=== PATIENT | male | born 1945 | race Caucasian/White ===

== ENCOUNTER → 2019-09-26 09:02 | Outpatient (BNVA) | payer MEDICARE, OTHER, SELFPAY | PROVIDERS: Family Provider Internal Medicine; PCP Internal Medicine; Visit Provider Urology | DX: N41.1 Chronic prostatitis (principal); N99.112 Postprocedural membranous urethral stricture, male; R97.20 Elevated prostate specific antigen [PSA] | CPT/HCPCS: 81001 ==

== ENCOUNTER → 2019-12-03 09:52 | Outpatient (BNVA) | payer MEDICARE, OTHER, SELFPAY | PROVIDERS: Family Provider Internal Medicine; PCP Internal Medicine; Referring Provider Dermatology; Visit Provider Dermatology | DX: N41.1 Chronic prostatitis (principal); Z85.828 Personal history of other malignant neoplasm of skin; L57.0 Actinic keratosis; L82.1 Other seborrheic keratosis; B35.1 Tinea unguium | CPT/HCPCS: 17000; 17003; 99203; 99204 ==

== ENCOUNTER 2020-03-15 00:13 | Emergency (ER) | payer MEDICARE, OTHER, SELFPAY ==
[2020-03-15] VITALS (8 sets, daily range): BP systolic 113–133; BP diastolic 62–78; PULSE 68–104; RESP 16–20; TEMP 37.1–37.9; O2SAT 91–98; BMI 23.5
--- NOTE | 2020-03-15 01:22 | PC.NURSE ---
pt stated i think I'm feeling better, less coughing
--- NOTE | 2020-03-15 02:37 | PC.NURSE ---
Hourly rounding and video surveillance. Provided pt with drink and access to bathroom
--- NOTE | 2020-03-15 03:22 | XRR_ITS ---
PROCEDURE INFORMATION: Exam: XR Chest, 1 View Exam date and time: 03/15/2020 3:31 AM Age: 75 years old Clinical indication: Patient HX: Cough. Recent covid exposure. Negative covid test on 03/10/2020. ; Additional info: Cough fever TECHNIQUE: Imaging protocol: XR of the chest Views: 1 view. COMPARISON: CR Chest 1 [place] [id number] 05/07/2016 6:42 PM FINDINGS: Lungs: No CHF/pulmonary edema. Poor inspiration somewhat limits evaluation, especially of the lung bases. Visible lungs appear essentially clear. Pleural space: No visible pneumothorax. No definite pleural fluid. Heart/Mediastinum: Heart size is within normal limits. Bones/joints: No significant acute finding. XR/XR chest 1V portable [id number] IMPRESSION: 1. No definite pneumonia or CHF. 2. Other findings discussed above.
--- NOTE | 2020-03-15 03:33 | ED_ITS ---
HPI - COVID General: Chief Complaint: COVID symptoms Stated Complaint: all covid symptoms, tested tuesday came back -, Time Seen by Provider: 03/15/20 03:21 Triage information: Has fever, cough or shortness of breath . Exposure to COVID + person last 14 days History of Present Illness: HPI Narrative: 75-year-old male who lost his taste on Tuesday. He was tested for COVID-19 that day, and tested negative. Since that time, he has had a cough. No shortness of breath. He came with a fever today. No other symptoms. His tested positive for the virus on Tuesday, and was tested at the same time he was. MD complaint: has COVID symptoms Prior covid testing: yes, results known COVID 19 common symptoms: positive fever(s), chills, cough and body aches; negative productive cough, dyspnea, nausea, vomiting or diarrhea COVID 19 other sytmptoms: negative chest pressure or chest pain Onset (ago): day(s) Severity: mild Pertinent comorbid conditions: hypertension COVID Results: SARS-CoV-2 Antigen (Rapid) Negative (Negative) 03/15/20 02:30 03/15/20 Nasal/Oral Coronavirus 2019 PCR Pending 03/15/20 02:30 03/15/20 Review of Systems Const: Reports: fever(s), chills and body aches Card: Denies: chest pain Resp: Denies: dyspnea or productive cough GI: Denies: nausea, vomiting, diarrhea or hematochezia PFS ED PFSH: Medical History (Updated 03/15/20 @ 04:25 by Shawn Cantor DO) Chronic prostatitis Elevated PSA History of nonmelanoma skin cancer GERARDO (obstructive sleep apnea) SVT (supraventricular tachycardia) Urethral stricture Surgical History H/O hand surgery Left thumb tendon repair S/P cystourethroscopy with dilation of urethral stricture 2013 S/P hernia repair Left inguinal S/P TURP 2012 Family History Father Heart disease Mother Heart disease Dementia Social History Smoking and tobacco status: never smoked Alcohol intake: never Adopted: No Caregiver/support person: No Lives independently: No Household members: spouse Marital status: Current occupational status: retired Physical Exam Const: GENERAL APPEARANCE: well developed ORIENTATION/CONSCIOUSNESS: Yes oriented to person, Yes oriented to place and Yes oriented to time HENMT: COMMON NORMALS: normocephalic, external ears normal and Normal external nose present HEAD & SCALP: normocephalic FACE & SINUS: normal facial exam NOSE: Normal external nose present and No nasal discharge present EXTERNAL EAR: Yes external ears normal Eye: COMMON NORMALS: Equal, round and reactive pupils present, EOMs intact bilaterally and conjunctivae normal EYELID: eyelids normal CONJUNCTIVA: Yes conjunctivae normal PUPIL: Yes Equal, round and reactive pupils present Neck/C-Spine: GENERAL: No tracheal deviation Chest: COMMONS NORMALS: normal inspection of the chest CHEST: No tenderness Resp: COMMON NORMALS: clear to auscultation bilaterally EFFORT & INSPECTION: No tachypneic, No respiratory distress, No retractions, No uses accessory muscles and No tracheal deviation AUSCULTATION: clear to auscultation bilaterally, no rhonchi, no wheezes and lung sounds not diminished Cardio: COMMON NORMALS: regular rate and regular rhythm RATE: regular rate RHYTHM: regular rhythm HEART SOUNDS: no murmurs PERIPHERAL PULSES: radial pulses present GI: INSPECTION: No abdominal distension AUSCULTATION: No Hyperactive bowel sounds present and No Hypoactive bowel sounds present PALPATION: No Guarding due to palpation present (GI) and No Rigid due to palpation PERCUSSION: no dullness to percussion and no tympanic to percussion Neuro: SENSORIUM/ORIENTATION: Yes oriented to person, Yes oriented to place and Yes oriented to time Psych: COMMON NORMALS: mental status grossly normal Skin: COMMON NORMALS: no rashes or lesions noted GENERAL SKIN EXAM: no rashes or lesions noted Course Vital Signs: Vital signs: Vital Signs Temperature 99.7 F H 03/15/20 03:00 Pulse Rate 69 03/15/20 04:00 Respiratory Rate 18 03/15/20 04:00 Blood Pressure 116/69 03/15/20 04:00 Pulse Oximetry 94 03/15/20 04:00 MDM - COVID MDM Narrative: Medical decision making narrative: Patient presents with a mild fever. He otherwise appears well. He is not hypoxic. His chest is nontender. His belly is nontender. He has normal saturations. His chest x-ray is negative. His rapid Covid is negative. He is tested for PCR as well, which will be pending of course. He was tested rapid, as he would be a candidate for monoclonal antibody infusion. He will remain such, should his PCR turn positive. Lab Data: Labs: Lab Results 03/15/20 Range/Units 02:30 SARS-CoV-2 Ag (Rap id) Negative (Negative) COVID Results: SARS-CoV-2 Antigen (Rapid) Negative (Negative) 03/15/20 02:30 03/15/20 Nasal/Oral Coronavirus 2019 PCR Pending 03/15/20 02:30 03/15/20 Discharge Plan Discharge Patient Disposition: Home Clinical Impression: Upper respiratory infection Qualifiers: URI type: unspecified URI Qualified Code(s): J06.9 - Acute upper respiratory infection, unspecified Condition: Stable Prescriptions: New doxycycline hyclate 100 mg capsule 100 mg PO BID 7 Days Qty: 14 RF: 0 No Action magnesium oxide 400 mg magnesium capsule 400 mg PO DAILY RF: 0 ibuprofen 200 mg capsule 200 mg PO Q6H PRNRF: 0 levothyroxine 25 mcg capsule 25 mcg PO DAILY RF: 0 meclizine 25 mg tablet 25 mg PO DAILY PRNRF: 0 vitamin B complex [B Complex-Vitamin B12] Tablet 1 tab PO DAILY RF: 0 valacyclovir 1 gram tablet 1,000 mg PO BID PRNRF: 0 sulfamethoxazole-trimethoprim 800-160 mg tablet 1 tab PO BID PRNRF: 0 All Day Allergy (cetirizine) 10 mg capsule PO RF: 0 metoprolol succinate 25 mg tablet extended release 24 hr 25 mg PO DAILY Qty: 90 RF: 3 finasteride 5 mg tablet 5 mg PO DAILY Qty: 30 RF: 12 Discharge Orders: Discharge ED (Routine); Ordered 03/15/20 Ordered By: Shawn Cantor Referrals: Bradley Marquis DO [Primary Care Provider] - 4-7 days Activity Restrictions/Additional Instructions: Return for continued or worsening fever, shortness of breath, mental status changes, other concerning symptoms. Continue to hydrate. Watch your fever closely. He should continue to quarantine at home. You should be notified of your results for the PCR Covid test. Coding Level of Care Code ED Stroke Program Coordinator for Chg Fwd Exam Comprehensive
--- NOTE | 2020-03-15 04:02 | PC.NURSE ---
pt waiting on Covid test result
[2020-03-15 04:15] LABS: SARS Covid-2 Antigen Negative (Negative)
[2020-03-15] MEDS: dexamethasone 4 mg Tablet 10 MG PO (05:03)
[2020-03-16 12:32] LABS: Quest SARS-CoV-2 RNA DETECTED (NOT DETECTED)
--- NOTE | 2020-03-16 15:51 | PC.NURSE ---
Patient notified of COVID results at this time.
== END 2020-03-15 05:10 | disposition home or self-care (01) ==
PROVIDERS: Emergency Provider Emergency Medicine; PCP Internal Medicine
DX: U07.1 COVID-19 (principal)
CPT/HCPCS: 12345; 71045; 87426; 87635; 99282; 99283; J8540

== ENCOUNTER → 2020-09-25 09:21 | Outpatient (BNVA) | payer MEDICARE, OTHER, SELFPAY | PROVIDERS: PCP Internal Medicine; Visit Provider Urology | DX: R97.20 Elevated prostate specific antigen [PSA] (principal); N41.1 Chronic prostatitis; N99.112 Postprocedural membranous urethral stricture, male | CPT/HCPCS: 81003; 84153 ==

== ENCOUNTER 2020-10-14 07:35 | Outpatient (CLI) | payer MEDICARE, OTHER, SELFPAY ==
--- NOTE | 2020-10-14 08:00 | USCV_ITS ---
Vimal Walden Age: 75 Gender: M : 1945 Exam Date: 10/14/2020 08:05 Ordering Phys: Todd Duarte MD ([email or web address]) Technologist: SITA [place] [facility] [place]B BP: 120 / 70 HR: 60 Rhythm: Sinus Technical Quality: MEASUREMENTS (Male / Female) Normal Values 2D ECHO LV Diastolic Diameter PLAX 4.4 cm 4.2 - 5.9 / 3.9 - 5.3 cm LV Systolic Diameter PLAX 3.0 cm IVS Diastolic Thickness 1.1 cm 0.6 - 1.0 / 0.6 - 0.9 cm IVS Systolic Thickness 1.4 cm LVPW Diastolic Thickness 1.1 cm 0.6 - 1.0 / 0.6 - 0.9 cm LVPW Systolic Thickness 1.3 cm RV Chamber Size 3.5 cm LVOT Diameter 2.0 cm LV Ejection Fraction 2D Teich 60.2 % LV Ejection Fraction MOD 2C 65.4 % LV Ejection Fraction 2C AL 68.0 % LA Diameter 2.6 cm LA Width 3.7 cm LA Height 4.3 cm RA Width 3.4 cm RA Height 4.5 cm Aorta at Sinotubular Diameter 2.2 cm M-MODE Aortic Annulus Diameter 3.0 cm LA Ao Ratio MM 0.9 MV E Point Septal Separation 0.8 cm DOPPLER AV Peak Velocity 87.0 cm/s LVOT Peak Velocity 74.0 cm/s AV Area Cont Eq vti 2.4 cm squared AV Area Cont Eq pk 2.7 cm squared MV Area PHT 4.1 cm squared Mitral E to A Ratio 1.5 MV E' Velocity 39.5 cm/s Mitral E to MV E' Ratio 7.3 Mitral E to LV E' Lateral Ratio 6.9 Mitral E to LV E' Septal Ratio 7.7 TR Peak Velocity 243.0 cm/s TR Peak Gradient 23.6 mmHg TV Peak E Velocity 53.0 cm/s Right Atrial Pressure 3.0 mmHg Pulmonary Artery Systolic Pressu 26.6 mmHg PV Peak Velocity 95.0 cm/s RV Acceleration Time 0.1 s RV Ejection Time 0.3 s RV AcT/ET 0.3 FINDINGS Left Ventricle Normal left ventricular cavity size. Normal left ventricular systolic function. No regional wall motion abnormalities. Left ventricular ejection fraction is estimated at 65 %. Grade II/IV diastolic dysfunction, moderately elevated filling pressures. Right Ventricle The right ventricle is normal in size and function. RVSP could not be calculated due to incomplete tricuspid regurgitation velocity profile. Right Atrium The right atrium is normal in size. Left Atrium The left atrium is normal in size. Mitral Valve Moderately thickened mitral valve. Mild mitral annular calcification. No mitral valve stenosis. Trace mitral valve regurgitation. Aortic Valve Severe aortic valve calcification. No aortic valve stenosis. Trace aortic valve regurgitation. Tricuspid Valve Structurally normal tricuspid valve without significant stenosis or regurgitation. Pulmonic Valve Structurally normal pulmonic valve without significant stenosis. There is no pulmonic regurgitation. Pericardium Normal pericardium without effusion. Aorta Normal ascending aorta dimension. CONCLUSIONS 1-Normal left ventricular cavity size. Normal left ventricular systolic function. No regional wall motion abnormalities. Left ventricular ejection fraction is estimated at 65 %. Grade II/IV diastolic dysfunction, moderately elevated filling pressures. 2-No significant valve abnormalities. 3-There is no pericardial effusion. 4-No significant change since the prior echocardiogram study of 06/18/2016.. Todd Duarte MD (Electronically Signed) Final Date: 14 October 2020 22:10 S
== END 2020-10-14 07:36 | disposition home or self-care (01) ==
PROVIDERS: PCP Internal Medicine; Visit Provider Internal Medicine Cardiovascular Disease
DX: R06.02 Shortness of breath (principal); R07.9 Chest pain, unspecified
CPT/HCPCS: 93306

== ENCOUNTER → 2021-03-03 15:46 | Outpatient (BNVA) | payer MEDICARE, OTHER, SELFPAY | PROVIDERS: PCP Internal Medicine; Visit Provider Urology | DX: N41.1 Chronic prostatitis (principal); N99.112 Postprocedural membranous urethral stricture, male; R31.0 Gross hematuria | CPT/HCPCS: 81003 ==

== ENCOUNTER → 2021-05-10 10:28 | Outpatient (BNVA) | payer MEDICARE, OTHER, SELFPAY | PROVIDERS: PCP Internal Medicine; Visit Provider Nurse Practitioner | DX: R50.9 Fever, unspecified (principal) | CPT/HCPCS: 87400 ==

== ENCOUNTER → 2021-09-11 10:10 | Outpatient (BNVA) | payer MEDICARE, OTHER, SELFPAY | PROVIDERS: PCP Internal Medicine; Visit Provider Internal Medicine Cardiovascular Disease | DX: I47.1 Supraventricular tachycardia (principal) | CPT/HCPCS: 99213 ==

== ENCOUNTER → 2021-09-28 12:59 | Outpatient (BNVA) | payer MEDICARE, OTHER, SELFPAY | PROVIDERS: PCP Internal Medicine; Visit Provider Urology | DX: R31.0 Gross hematuria (principal); N41.1 Chronic prostatitis; N99.112 Postprocedural membranous urethral stricture, male | CPT/HCPCS: 51798; 81003; 99213 ==

== ENCOUNTER 2021-11-08 12:59 | Emergency (ER) | payer MEDICARE, OTHER, SELFPAY ==
[2021-11-08 13:14] VITALS: BP 162/82; PULSE 63; RESP 16; TEMP 36.7; O2SAT 97; BMI 23.3
--- NOTE | 2021-11-08 13:40 | CTR_ITS ---
PROCEDURE INFORMATION: Exam: CT Head Without Contrast Exam date and time: 11/08/2021 3:33 PM Age: 76 years old Clinical indication: Altered mental status/memory loss and visual disturbance; Confusion or disorientation; Additional info: Symptoms of acute stroke TECHNIQUE: Imaging protocol: Computed tomography of the head without contrast. Radiation optimization: All CT scans at this facility use at least one of these dose optimization techniques: automated exposure control; mA and/or kV adjustment per patient size (includes targeted exams where dose is matched to clinical indication); or iterative reconstruction. COMPARISON: No relevant prior studies available. RADIATION DOSE METRICS: Total DLP (mGy-cm): 1043.08 FINDINGS: Brain: There are moderate periventricular and subcortical lucencies consistent with chronic microvascular ischemic changes. The tai-white differentiation is maintained. No hemorrhage. No edema. Cerebral ventricles: No ventriculomegaly. Paranasal sinuses: Visualized sinuses are unremarkable. No fluid levels. Mastoid air cells: Visualized mastoid air cells are well aerated. Bones/joints: Unremarkable. No acute fracture. Soft tissues: Unremarkable. CT/CT head wo con* [id number] IMPRESSION: No acute intracranial abnormality. Chronic microvascular ischemic changes.
--- NOTE | 2021-11-08 13:45 | CTR_ITS ---
PROCEDURE INFORMATION: Exam: CTA Head With Contrast, Arteriography Exam date and time: 11/08/2021 3:37 PM Age: 76 years old Clinical indication: Visual disturbance; Transient visual loss; Additional info: Transient monocular vision loss TECHNIQUE: Imaging protocol: Computed tomographic angiography of the head with contrast. Exam focused on the arteries. 3D rendering (Not supervised by radiologist): MIP and/or 3D reconstructed images were created by the technologist. Radiation optimization: All CT scans at this facility use at least one of these dose optimization techniques: automated exposure control; mA and/or kV adjustment per patient size (includes targeted exams where dose is matched to clinical indication); or iterative reconstruction. Contrast material: OMNIPAQUE 350; Contrast volume: 95 ml; Contrast route: INTRAVENOUS (IV); COMPARISON: CT head wo con* [id number] 11/08/2021 3:33 PM RADIATION DOSE METRICS: Total DLP (mGy-cm): 455.42 FINDINGS: ANTERIOR CIRCULATION: Right internal carotid artery: Unremarkable. Intracranial segment is patent with no significant stenosis. No aneurysm. Right middle cerebral artery: Unremarkable. No occlusion or significant stenosis. No aneurysm. Right anterior cerebral artery: Unremarkable. No occlusion or significant stenosis. No aneurysm. Left internal carotid artery: Unremarkable. Intracranial segment is patent with no significant stenosis. No aneurysm. Left middle cerebral artery: Unremarkable. No occlusion or significant stenosis. No aneurysm. Left anterior cerebral artery: Unremarkable. No occlusion or significant stenosis. No aneurysm. POSTERIOR CIRCULATION: Right vertebral artery: Unremarkable. No occlusion or significant stenosis. No aneurysm. Left vertebral artery: Unremarkable. No occlusion or significant stenosis. No aneurysm. Basilar artery: Unremarkable. No occlusion or significant stenosis. No aneurysm. Right posterior cerebral artery: Unremarkable. No occlusion or significant stenosis. No aneurysm. Left posterior cerebral artery: Unremarkable. No occlusion or significant stenosis. No aneurysm. Brain: No definite mass, mass effect, or midline shift. Cerebral ventricles: No ventriculomegaly. Bones/joints: Unremarkable. No acute fracture. Soft tissues: Unremarkable. PROCEDURE INFORMATION: Exam: CTA Neck With Contrast Exam date and time: 11/08/2021 3:37 PM Age: 76 years old Clinical indication: Visual disturbance; Transient visual loss; Additional info: Transient monocular vision loss TECHNIQUE: Imaging protocol: Computed tomographic angiography of the neck with contrast. 3D rendering (Not supervised by radiologist): MIP and/or 3D reconstructed images were created by the technologist. Radiation optimization: All CT scans at this facility use at least one of these dose optimization techniques: automated exposure control; mA and/or kV adjustment per patient size (includes targeted exams where dose is matched to clinical indication); or iterative reconstruction. Contrast material: OMNIPAQUE 350; Contrast volume: 95 ml; Contrast route: INTRAVENOUS (IV); COMPARISON: CT head wo con* [id number] 11/08/2021 3:33 PM RADIATION DOSE METRICS: Total DLP (mGy-cm): 455.42 FINDINGS: Right common carotid artery: No stenosis. No dissection or occlusion. Right internal carotid artery: No stenosis of the extracranial segment. No dissection or occlusion. Right external carotid artery: No occlusion or stenosis of the origin. Left common carotid artery: No stenosis. No dissection or occlusion. Left internal carotid artery: No stenosis of the extracranial segment. No dissection or occlusion. Left external carotid artery: No occlusion or stenosis of the origin. Right vertebral artery: No stenosis. No dissection or occlusion. Left vertebral artery: No stenosis. No dissection or occlusion. Soft tissues: Normal. No significant soft tissue swelling. Bones/joints: No acute fracture. CT/CT angio headneck* [id number] IMPRESSION: No large vessel stenosis or occlusion. IMPRESSION: No stenosis or occlusion. REFERENCES: NASCET CRITERIA. The degree of stenosis in the cervical segment of the internal carotid artery is based on NASCET criteria. Normal is no stenosis. Mild is less than 50% stenosis. Moderate is 50-69% stenosis. Severe is 70% to 99% stenosis. Total occlusion is no detectable patent lumen.
--- NOTE | 2021-11-08 13:55 | ECG_ITS ---
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 Measurements Intervals Louise Rate: 55 P: 37 CA: 149 QRS: 15 QRSD: 84 T: -5 QT: 406 QTc: 390 Interpretive Statements SINUS BRADYCARDIA Compared to ECG 05/07/2016 22:06:43 Sinus rhythm no longer present Electronically Signed On 11-08-2021 18:13:20 CDT by Alexandro Olsen M.D. [id number]
--- NOTE | 2021-11-08 14:06 | W.ED.EYEPROB ---
HPI - Eye Problem General: Chief complaint: Eye Problems Stated complaint: Left eye when blurry and left side weakness Time Seen by Provider: 11/08/21 13:24 History of Present Illness: This patient is a 76 year old male presenting with acute vision changes in his left eye that occurred at 10 am this morning. He was sitting in [employer] and noted that the left eye went dark fairly suddenly. He was able to see a little bit but like through a cloth. Gradually the symptoms resolved and his vision is nearly normal now - but the eye continues to feel funny. He can't be more descriptive than that. No pain. No numbness of the skin around the eye. No other neuro symptoms. No headache. No nausea, lightheadedness, speech or swallowing difficulties. The triage note mentions left sided weakness and the patient specifically denied that to me. He has regular eye exams and has been told that he has the start of cataracts and wears glasses for vision correction. Associated symptoms: Reports neck pain (chronic and unchanged today); Denies fever(s), headache(s), nausea or vomiting Review of Systems Const: Denies: fever(s) or chills Eyes: Reports: change in vision and seeing flashes (has had in the past, but not today) ENMT: Denies: odynophagia Card: Denies: chest pain or swelling of feet/ankles Resp: Denies: dyspnea, productive cough or non-productive cough GI: Denies: abdominal pain, nausea or vomiting : Denies: flank pain Musc: Reports: neck pain (chronic and unchanged today); Denies: back pain Skin/Breast: Denies: rash Neuro: Denies: headache(s), numbness in extremities or weakness in extremities Son/Lymph: Denies: easy bruising or easy bleeding PFS ED PFSH: Medical History Chronic prostatitis Elevated PSA History of nonmelanoma skin cancer GERARDO (obstructive sleep apnea) SVT (supraventricular tachycardia) Urethral stricture Surgical History H/O hand surgery Left thumb tendon repair S/P cystourethroscopy with dilation of urethral stricture 2013 S/P hernia repair Left inguinal S/P TURP 2012 Family History Father , at age 74 Heart disease Mother , at age 93 Heart disease Dementia Social History Smoking and tobacco status: never smoked Alcohol intake: never Adopted: No Caregiver/support person: No Lives independently: No Household members: spouse Marital status: Current occupational status: retired History of recent travel: No Physical Exam Const: COMMON NORMALS: no acute distress, patient oriented x3, no limitations and alert GENERAL APPEARANCE: cooperative and comfortable HENMT: HEAD & SCALP: normal to inspection FACE & SINUS: normal facial exam Eye: COMMON NORMALS: Equal, round and reactive pupils present, EOMs intact bilaterally, conjunctivae normal, no papilledema, normal visual levine by confrontation and fundi normal bilaterally GENERAL EYE: appearance normal, both eyes and all related structures CONJUNCTIVA: Yes conjunctivae normal PUPIL: Yes Equal, round and reactive pupils present DIRECT OPHTHALMOSCOPY: Yes no papilledema and Yes fundi normal bilaterally OTHER: pressure 19 with tonometry Neck/C-Spine: COMMON NORMALS: supple, no meningeal signs and no JVD Chest: COMMONS NORMALS: normal inspection of the chest Resp: COMMON NORMALS: normal respiratory effort, No use of accessory muscles and clear to auscultation bilaterally AUSCULTATION: clear to auscultation bilaterally Cardio: COMMON NORMALS: no JVD, regular rate, regular rhythm and No murmurs present (Cardio) RATE: regular rate RHYTHM: regular rhythm GI: COMMON NORMALS: Normal to inspection, nondistended, normoactive bowel sounds present, Soft to palpation and non-tender INSPECTION: Yes normal to inspection AUSCULTATION: Yes normoactive bowel sounds PALPATION: Yes Soft to palpation Back/Pelvis: COMMON NORMALS: thoracic and lumbar spine normal to inspection Extremity: COMMON NORMALS: normal to inspection Neuro: COMMON NORMALS: patient oriented x3, moves all extremities, no focal motor deficits and no sensory deficits noted SENSORIUM/ORIENTATION: Yes alert MENINGEAL SIGNS: Yes no meningeal signs Psych: COMMON NORMALS: mental status grossly normal, cooperative and normal affect Skin: COMMON NORMALS: no rashes or lesions noted and turgor normal GENERAL SKIN EXAM: no rashes or lesions noted and turgor normal Course ED course: Patient remained asymptomatic while in the ED. Work up with normal CRP/ESR, normal CT and CTA head and neck. Normal eye exam within the limitations of an ED. He will go home with follow up with his eye doctor tomorrow. He will also follow up with his PCP. He understands that we have ruled out carotid blockage, however he may still need further testing as to the cause of his transient vision loss. He also understands return precautions. Vital Signs: Vital signs: Vital Signs Temperature 98.1 F 11/08/21 13:14 Pulse Rate 58 L 11/08/21 16:00 Respiratory Rate 16 11/08/21 16:00 Blood Pressure 128/77 11/08/21 16:00 Pulse Oximetry 96 11/08/21 16:00 Oxygen Delivery Me thod 11/08/21 14:32 MDM - Eye Problem Medical Decision Making Transient monocular vision loss - TIA, stroke, dissection, retinal pathology, retinal artery spasm, complex migraine, vitreous hemorrhage. Of note he is on viagra as needed for erectile dysfunction Lab Data : 11/08/21 14:03 11/08/21 14:[address] 11/08/21 13:40 IMPRESSION: No acute intracranial abnormality. Chronic microvascular ischemic changes. Head/Neck CTA 11/08/21 13:45 IMPRESSION: No large vessel stenosis or occlusion. IMPRESSION: No stenosis or occlusion. REFERENCES: NASCET CRITERIA. The degree of stenosis in the cervical segment of the internal carotid artery is based on NASCET criteria. Normal is no stenosis. Mild is less than 50% stenosis. Moderate is 50-69% stenosis. Severe is 70% to 99% stenosis. Total occlusion is no detectable patent lumen. Laboratory Results WBC 6.5 10^3/uL (4.0-10.0) 11/08/21 14:03 RBC 4.74 10^6/uL (4.1-5.3) 11/08/21 14:03 Hgb 14.9 g/dL (11.7-16.6) 11/08/21 14:03 Hct 45.0 % (42.0-52.0) 11/08/21 14:03 MCV 94.9 fl (80-94) H 11/08/21 14:03 MCH 31.4 pg (28.0-34.0) 11/08/21 14:03 MCHC 33.1 g/dL (30.0-36.0) 11/08/21 14:03 RDW 13.2 % (12.1-15.1) 11/08/21 14:03 Plt Count 211 10^3/cmm (130-400) 11/08/21 14:03 MPV 9.8 fL (7.4-10.4) 11/08/21 14:03 Neut % (Auto) 60.2 % 11/08/21 14:03 Lymph % (Auto) 27.3 % 11/08/21 14:03 [place] % (Auto) 10.1 % 11/08/21 14:03 Eos % (Auto) 1.7 % 11/08/21 14:03 Baso % (Auto) 0.5 % 11/08/21 14:03 Neut # (Auto) 3.89 10^3/uL (1.8-7.7) 11/08/21 14:03 Lymph # (Auto) 1.8 10^3/uL (0.8-4.8) 11/08/21 14:03 [place] # (Auto) 0.7 10^3/uL (0.2-0.9) 11/08/21 14:03 Eos # (Auto) 0.1 10^3/uL (0.0-0.8) 11/08/21 14:03 Baso # (Auto) 0.0 10^3/uL (0.0-0.1) 11/08/21 14:03 Nucleated RBC % (auto) 0 % 11/08/21 14:03 Nucleated RBCs # 0.0 /100WBC 11/08/21 14:03 ESR 7 mm/hr (0-10) 11/08/21 14:03 PT 13.50 SECONDS (12.1-14.9) 11/08/21 14:03 INR 1.00 (0.8-1.2) 11/08/21 14:03 APTT 32.5 SECONDS (23.9-36.7) 11/08/21 14:03 Sodium 137 mmol/L (136-145) 11/08/21 14:03 Potassium 4.2 mmol/L (3.5-5.1) 11/08/21 14:03 Chloride 104 mmol/L (98-107) 11/08/21 14:03 Carbon Dioxide 23 mmol/L (22-29) 11/08/21 14:03 Anion Gap 14.2 (5-19) 11/08/21 14:03 BUN 19 mg/dL (8-23) 11/08/21 14:03 Creatinine 1.3 mg/dL (0.7-1.2) H 11/08/21 14:03 GFR Calculation Not Reportable 11/08/21 14:03 Glucose 90 mg/dL (65-115) 11/08/21 14:03 Calculated Osmolality 286 mOsm/kg (285-295) 11/08/21 14:03 Calcium 8.8 mg/dL (8.5-10.5) 11/08/21 14:03 Total Bilirubin 0.6 mg/dL (0.15-1.2) 11/08/21 14:03 AST 22 U/L (0-40) 11/08/21 14:03 ALT 14 U/L (0-41) 11/08/21 14:03 Alkaline Phosphatase 57 U/L (40-130) 11/08/21 14:03 C-Reactive Protein 3.6 mg/L (0.0-4.9) 11/08/21 14:03 Total Protein 6.8 g/dL (6.6-8.7) 11/08/21 14:03 Albumin 4.0 g/dL (3.5-5.2) 11/08/21 14:03 Globulin 2.8 g/dL (1.3-4.6) 11/08/21 14:03 Discharge Plan Discharge Patient Disposition: Home Clinical Impression: Transient visual loss of left eye, Normal eye and vision exam Condition: Stable Prescriptions: Discontinued sildenafil (pulm.hypertension) 20 mg tablet 20 mg PO TID PRN Rx Instructions: administer doses at least 4-6 hours apart No Action magnesium oxide 400 mg magnesium capsule 400 mg PO DAILY ibuprofen 200 mg capsule 200 mg PO Q6H PRN vitamin B complex [B Complex-Vitamin B12] Tablet 1 tab PO DAILY fluticasone propionate [Children's Flonase Allergy Rlf] 50 mcg/actuation spray,suspension 1 spray intranasal DAILY PRN Rx Instructions: administer into each nostril sulfamethoxazole-trimethoprim 800-160 mg tablet 1 tab PO BID PRN finasteride 5 mg tablet See Rx Instructions .ROUTE .COMPLEX PRN Dose Instruction: Take 1 tablet by mouth once daily Rx Instructions: Take 1 tablet by mouth once daily PRN; multivitamin Tablet 1 tab PO DAILY levothyroxine 75 mcg capsule 75 mcg PO DAILY metoprolol succinate 25 mg tablet extended release 24 hr 25 mg PO DAILY Qty: 90 3RF Discharge Orders: Discharge ED (Routine); Ordered 11/08/21 Ordered By: Nadine Funes Referrals: Bradley Marquis DO [Primary Care Provider] - Discharge Diet: Usual diet Discharge Activity: Limit activity as instructed Patient Instructions: Opioid Safety, Vision Problems Activity Restrictions/Additional Instructions: Do not take any viagra until you discuss this episode with your medical doctor. See your eye doctor tomorrow for a thorough eye exam. Return to the ED if any further episodes of vision changes, or any other new symptoms such as headache, speech or swallowing difficulty, numbness, weakness, facial droop. Coding Level of Care Code ED Neurology Stroke Physician for Shruthi Fwd Exam Comprehensive
[2021-11-08 14:18] LABS: Basophils % 0.5 %; Eosinophils # 0.1 10^3/uL (0.0-0.8); Eosinophils % 1.7 %; Hemoglobin 14.9 g/dL (11.7-16.6); Lymphocytes # 1.8 10^3/uL (0.8-4.8); Lymphocytes % 27.3 %; Mean Corpuscular HGB Conc 33.1 g/dL (30.0-36.0); Mean Corpuscular Hemoglobin 31.4 pg (28.0-34.0); Mean Corpuscular Volume 94.9 fl (80-94); Mean Platelet Volume 9.8 fL (7.4-10.4); Monocytes # 0.7 10^3/uL (0.2-0.9); Monocytes % 10.1 %; Neutrophils # 3.89 10^3/uL (1.8-7.7); Neutrophils % 60.2 %; Nucleated Red Blood Cells % 0 %; Platelet Count 211 10^3/cmm (130-400); Red Blood Count 4.74 10^6/uL (4.1-5.3); Red Cell Distribution Width 13.2 % (12.1-15.1); White Blood Count 6.5 10^3/uL (4.0-10.0)
[2021-11-08 14:32] VITALS: BP 149/88; PULSE 56; RESP 17; O2SAT 98
[2021-11-08 14:43] LABS: Alanine Aminotransferase 14 U/L (0-41); Alkaline Phosphatase 57 U/L (40-130); Anion Gap 14.2 (5-19); Aspartate Amino Transferase 22 U/L (0-40); Blood Urea Nitrogen 19 mg/dL (8-23); C Reactive Protein 3.6 mg/L (0.0-4.9); Calcium 8.8 mg/dL (8.5-10.5); Carbon Dioxide 23 mmol/L (22-29); Chloride 104 mmol/L (98-107); Globulin 2.8 g/dL (1.3-4.6); Glucose 90 mg/dL (65-115); Osmolality Calculated 286 mOsm/kg (285-295); Potassium 4.2 mmol/L (3.5-5.1); Sodium 137 mmol/L (136-145); Total Bilirubin 0.6 mg/dL (0.15-1.2); Total Protein 6.8 g/dL (6.6-8.7)
[2021-11-08 14:49] LABS: Erythrocyte Sedimentation Rate 7 mm/hr (0-10)
[2021-11-08 16:00] VITALS: BP 128/77; PULSE 58; RESP 16; O2SAT 96
[2021-11-08] MEDS: iohexol 350 mg/mL 100 mL Btl IV (16:01)
[2021-11-08 16:18] LABS: Partial Thromboplastin Time 32.5 SECONDS (23.9-36.7)
[2021-11-08 17:23] VITALS: BP 143/82; PULSE 60; RESP 16; O2SAT 95
== END 2021-11-08 17:27 | disposition home or self-care (01) ==
PROVIDERS: Emergency Provider Emergency Medicine; PCP Internal Medicine
DX: H53.122 Transient visual loss, left eye (principal)
CPT/HCPCS: 70450; 70496; 70498; 80053; 85025; 85610; 85651; 85730; 86140; 93005; 99285; Q9967

== ENCOUNTER 2021-12-11 16:02 | Emergency (ER) | payer MEDICARE, OTHER, SELFPAY ==
[2021-12-11] VITALS (7 sets, daily range): BP systolic 115–161; BP diastolic 68–105; PULSE 57–70; RESP 16–20; O2SAT 95–100; BMI 23.3
--- NOTE | 2021-12-11 16:54 | ED_ITS ---
Documented by User: Jonas Baird DO 12/19/21 17:04 HPI - Neuro Symptoms/Deficit General: Chief Complaint: Neuro Symptoms/Deficit Stated Complaint: confusion Time Seen by Provider: 12/11/21 16:42 Source: patient Mode of arrival: ambulatory History of Present Illness: 76-year-old male presents emergency room with sudden brief onset of confusion. Happened about an hour prior to arrival he was working outside suddenly could remember what he was doing why where he was at had difficult time calling his . He could still speak he did not have any difficulty with word finding and no problem with his vision gait or swallowing. He had an episode a month ago where he lost vision in 1 eye for a brief period of time the number spontaneously returned. No recent medication changes no head trauma. no difficulty with gait. By the time patient arrived here he had recovered. Onset (ago): minute(s) Severity: mild Relieving factors: none Exacerbating factors: none On Anticoagulants: No Associated symptoms: Deny chest pain, cough, diaphoresis, fevers/chills, headache(s), anorexia, malaise, nausea, seizures, short of breath, syncope, tingling, vertigo, vomiting or weakness Treatments Prior to Arrival: none Review of Systems Const: Denies: fever(s), chills, fatigue, malaise or diaphoresis ENMT: Denies: throat pain, ear or mastoid pain, nasal discharge or nasal congestion Card: Denies: chest pain, palpitations, irregular heart rhythm or syncope Resp: Denies: dyspnea, productive cough or non-productive cough GI: Denies: abdominal pain, nausea, vomiting or hematemesis : Denies: flank pain, difficulty urinating, dysuria, urinary frequency or urinary urgency Skin/Breast: Denies: rash or pruritus Neuro: Denies: headache(s) or vertigo PFSH ED PFSH: Medical History Chronic prostatitis Elevated PSA History of nonmelanoma skin cancer GERARDO (obstructive sleep apnea) SVT (supraventricular tachycardia) Urethral stricture Surgical History H/O hand surgery Left thumb tendon repair S/P cystourethroscopy with dilation of urethral stricture 2013 S/P hernia repair Left inguinal S/P TURP 2012 Family History Father , at age 74 Heart disease Mother , at age 93 Heart disease Dementia Social History Smoking and tobacco status: never smoked Alcohol intake: never Adopted: No Caregiver/support person: No Lives independently: No Household members: spouse Marital status: Current occupational status: retired History of recent travel: No Physical Exam Const: COMMON NORMALS: no acute distress GENERAL APPEARANCE: cooperative an d comfortable ORIENTATION/CONSCIOUSNESS: Yes awake, Yes oriented to person, Yes oriented to place and Yes oriented to time HENMT: COMMON NORMALS: normocephalic, atraumatic, hearing grossly normal bilaterally, external ears normal, EAC's normal, TM's normal bilaterally, Normal nasal mucous membranes and turbinates present, moist oral mucous membranes and oropharynx normal HEAD & SCALP: normocephalic and atraumatic NOSE: Normal nasal mucous membranes and turbinates present EXTERNAL EAR: Yes external ears normal EXTERNAL AUDITORY CANAL: EAC's normal TYMPANIC MEMBRANE: TM's normal bilaterally Eye: COMMON NORMALS: Equal, round and reactive pupils present, EOMs intact bilaterally, conjunctivae normal and no scleral icterus CONJUNCTIVA: Yes conjunctivae normal PUPIL: Yes Equal, round and reactive pupils present Neck/C-Spine: COMMON NORMALS: full ROM, no lymphadenopathy, supple and no JVD Lymph: LYMPHATIC: no lymphadenopathy noted and no lymphedema noted Resp: COMMON NORMALS: normal respiratory effort, No retractions, No use of accessory muscles and clear to auscultation bilaterally AUSCULTATION: clear to auscultation bilaterally Cardio: COMMON NORMALS: no JVD, regular rate, regular rhythm and No murmurs present (Cardio) RATE: regular rate RHYTHM: regular rhythm GI: COMMON NORMALS: Soft to palpation and No hepatosplenomegaly present AUSCULTATION: Yes normoactive bowel sounds PALPATION: Yes Soft to palpation, No Tenderness to palpation present (GI), No Guarding due to palpation present (GI) and Yes No hepatosplenomegaly present Extremity: COMMON NORMALS: normal to inspection, capillary refill normal, no clubbing, cyanosis or edema, no calf tenderness and no pedal edema Neuro: SENSORIUM/ORIENTATION: Yes oriented to person, Yes oriented to place and Yes oriented to time Skin: COMMON NORMALS: no rashes or lesions noted GENERAL SKIN EXAM: no rashes or lesions noted Course Vital Signs: Vital signs: Vital Signs Pulse Rate 61 12/11/21 19:51 Respiratory Rate 20 H 12/11/21 19:51 Blood Pressure 132/79 12/11/21 19:51 Pulse Oximetry 95 12/11/21 19:51 Oxygen Delivery Me thod 12/11/21 19:49 MDM - Neuro Symptoms/Deficit Medical Decision Making Care signed out to Dr. Cantor at change of shift. See final notes for diagnosis and disposition. 76-year-old gentleman checked out to me by the previous physician at shift change. He had a sudden onset of confusion with significant amount of activity, which is now resolved. His vital signs of been stable here. His blood pressure was evidently high at first, but has stabilized on its own and is now 132/79. His CBC is normal. His BMP shows a creatinine of 1.4. It is otherwise normal. His head CT and CTA show no evidence of hemorrhage, swelling, significant subacute stroke, or occlusion or stenosis. His urinalysis is negative. His symptoms are resolved. He has an outpatient MRI scheduled for Tuesday. He is encouraged to complete this, to essentially complete his work-up for ischemic cerebrovascular disease. He is encouraged to return for any further episodes such as this. He will follow-up with his doctor this coming week after his MRI. Lab Data : 12/11/21 16:50 12/11/21 16:[address] 12/11/21 16:55 IMPRESSION: No acute intracranial abnormality. Chest X-Ray 12/11/21 16:56 IMPRESSION: No acute findings. Head/Neck CTA 12/11/21 17:12 IMPRESSION: No large vessel stenosis or occlusion. IMPRESSION: No stenosis or occlusion. REFERENCES: NASCET CRITERIA. The degree of stenosis in the cervical segment of the internal carotid artery is based on NASCET criteria. Normal is no stenosis. Mild is less than 50% stenosis. Moderate is 50-69% stenosis. Severe is 70% to 99% stenosis. Total occlusion is no detectable patent lumen. Laboratory Results WBC 8.4 10^3/uL (4.0-10.0) 12/11/21 16:50 RBC 5.13 10^6/uL (4.1-5.3) 12/11/21 16:50 Hgb 16.4 g/dL (11.7-16.6) 12/11/21 16:50 Hct 48.6 % (42.0-52.0) 12/11/21 16:50 MCV 94.7 fl (80-94) H 12/11/21 16:50 MCH 32.0 pg (28.0-34.0) 12/11/21 16:50 MCHC 33.7 g/dL (30.0-36.0) 12/11/21 16:50 RDW 13.2 % (12.1-15.1) 12/11/21 16:50 Plt Count 219 10^3/cmm (130-400) 12/11/21 16:50 MPV 9.8 fL (7.4-10.4) 12/11/21 16:50 Neut % (Auto) 60.0 % 12/11/21 16:50 Lymph % (Auto) 27.5 % 12/11/21 16:50 [place] % (Auto) 9.7 % 12/11/21 16:50 Eos % (Auto) 1.9 % 12/11/21 16:50 Baso % (Auto) 0.5 % 12/11/21 16:50 Neut # (Auto) 5.02 10^3/uL (1.8-7.7) 12/11/21 16:50 Lymph # (Auto) 2.3 10^3/uL (0.8-4.8) 12/11/21 16:50 [place] # (Auto) 0.8 10^3/uL (0.2-0.9) 12/11/21 16:50 Eos # (Auto) 0.2 10^3/uL (0.0-0.8) 12/11/21 16:50 Baso # (Auto) 0.0 10^3/uL (0.0-0.1) 12/11/21 16:50 Nucleated RBC % (auto) 0 % 12/11/21 16:50 Nucleated RBCs # 0.0 /100WBC 12/11/21 16:50 Sodium 139 mmol/L (136-145) 12/11/21 16:50 Potassium 4.6 mmol/L (3.5-5.1) 12/11/21 16:50 Chloride 103 mmol/L (98-107) 12/11/21 16:50 Carbon Dioxide 26 mmol/L (22-29) 12/11/21 16:50 Anion Gap 14.6 (5-19) 12/11/21 16:50 BUN 18 mg/dL (8-23) 12/11/21 16:50 Creatinine 1.4 mg/dL (0.7-1.2) H 12/11/21 16:50 GFR Calculation Not Reportable 12/11/21 16:50 Glucose 92 mg/dL (65-115) 12/11/21 16:50 Calculated Osmolality 290 mOsm/kg (285-295) 12/11/21 16:50 Calcium 9.4 mg/dL (8.5-10.5) 12/11/21 16:50 Total Bilirubin 0.4 mg/dL (0.15-1.2) 12/11/21 16:50 AST 31 U/L (0-40) 12/11/21 16:50 ALT 21 U/L (0-41) 12/11/21 16:50 Alkaline Phosphatase 62 U/L (40-130) 12/11/21 16:50 Troponin T Baseline 14 ng/L (0-15) 12/11/21 16:50 Troponin T 120 Minute 13.07 ng/L (0-15) 12/11/21 18:31 Delta Troponin T -0.93 ABS# (0-10) L 12/11/21 18:31 Total Protein 7.4 g/dL (6.6-8.7) 12/11/21 16:50 Albumin 4.2 g/dL (3.5-5.2) 12/11/21 16:50 Globulin 3.2 g/dL (1.3-4.6) 12/11/21 16:50 Urine Color Yellow (Yellow) 12/11/21 18:25 Urine Appearance Clear (CLEAR) 12/11/21 18:25 Urine pH 7.0 (5-7) 12/11/21 18:25 Ur Specific [place] 1.015 (1.005-1.030) 12/11/21 18:25 Urine Protein Negative 12/11/21 18:25 Urine Glucose (UA) Negative (Normal) 12/11/21 18:25 Urine Ketones Negative (Negative) 12/11/21 18:25 Urine Blood Negative (Negative) 12/11/21 18:25 Urine Nitrate Negative 12/11/21 18:25 Urine Bilirubin Negative (Negative) 12/11/21 18:25 Urine Urobilinogen 0.2 mg/dL (Negative) 12/11/21 18:25 Ur Leukocyte Esterase Negative (Negative) 12/11/21 18:25 Discharge Plan Discharge Patient Disposition: Home Clinical Impression: Acute confusion due to medical condition Condition: Stable Prescriptions: No Action magnesium oxide 400 mg magnesium capsule 400 mg PO DAILY ibuprofen 200 mg capsule 200 mg PO Q6H PRN vitamin B complex [B Complex-Vitamin B12] Tablet 1 tab PO DAILY fluticasone propionate [Children's Flonase Allergy Rlf] 50 mcg/actuation spray,suspension 1 spray intranasal DAILY PRN Rx Instructions: administer into each nostril sulfamethoxazole-trimethoprim 800-160 mg tablet 1 tab PO BID PRN finasteride 5 mg tablet See Rx Instructions .ROUTE .COMPLEX PRN Dose Instruction: Take 1 tablet by mouth once daily Rx Instructions: Take 1 tablet by mouth once daily PRN; multivitamin Tablet 1 tab PO DAILY levothyroxine 75 mcg capsule 75 mcg PO DAILY metoprolol succinate 25 mg tablet extended release 24 hr 25 mg PO DAILY Qty: 90 3RF Discharge Orders: Discharge ED (Routine); Ordered 12/11/21 Ordered By: Shawn Cantor Referrals: Bradley Marquis DO [Primary Care Provider] - 1-3 days Discharge Diet: Advance as tolerated Discharge Activity: Limit activity as instructed Patient Instructions: Altered Mental Status (ED) Activity Restrictions/Additional Instructions: Check your blood pressure twice daily. Monitor for fever. Decrease your activity level until your MRI scan can be completed and you have followed up with your doctor. Return for any return of your symptoms Coding Level of Care Code ED Circulation Man for Gog Fwd Exam Comprehensive Documented by User: Shawn Cantor DO 12/12/21 02:30 HPI - Neuro Symptoms/Deficit General: Chief Complaint: Neuro Symptoms/Deficit Stated Complaint: confusion Time Seen by Provider: 12/11/21 16:42 PFSH ED PFSH: Medical History Chronic prostatitis Elevated PSA History of nonmelanoma skin cancer GERARDO (obstructive sleep apnea) SVT (supraventricular tachycardia) Urethral stricture Surgical History H/O hand surgery Left thumb tendon repair S/P cystourethroscopy with dilation of urethral stricture 2013 S/P hernia repair Left inguinal S/P TURP 2012 Family History Father , at age 74 Heart disease Mother , at age 93 Heart disease Dementia Social History Smoking and tobacco status: never smoked Alcohol intake: never Adopted: No Caregiver/support person: No Lives independently: No Household members: spouse Marital status: Current occupational status: retired History of recent travel: No Course Vital Signs: Vital signs: Vital Signs Pulse Rate 61 12/11/21 19:51 Respiratory Rate 20 H 12/11/21 19:51 Blood Pressure 132/79 12/11/21 19:51 Pulse Oximetry 95 12/11/21 19:51 Oxygen Delivery Me thod 12/11/21 19:49 MDM - Neuro Symptoms/Deficit Medical Decision Making 76-year-old gentleman checked out to me by the previous physician at shift change. He had a sudden onset of confusion with significant amount of activity, which is now resolved. His vital signs of been stable here. His blood pressure was evidently high at first, but has stabilized on its own and is now 132/79. His CBC is normal. His BMP shows a creatinine of 1.4. It is otherwise normal. His head CT and CTA show no evidence of hemorrhage, swelling, significant subacute stroke, or occlusion or stenosis. His urinalysis is negative. His symptoms are resolved. He has an outpatient MRI scheduled for Tuesday. He is encouraged to complete this, to essentially complete his work-up for ischemic cerebrovascular disease. He is encouraged to return for any further episodes such as this. He will follow-up with his doctor this coming week after his MRI. Lab Data : 12/11/21 16:50 12/11/21 16:[address] 12/11/21 16:55 IMPRESSION: No acute intracranial abnormality. Chest X-Ray 12/11/21 16:56 IMPRESSION: No acute findings. Head/Neck CTA 12/11/21 17:12 IMPRESSION: No large vessel stenosis or occlusion. IMPRESSION: No stenosis or occlusion. REFERENCES: NASCET CRITERIA. The degree of stenosis in the cervical segment of the internal carotid artery is based on NASCET criteria. Normal is no stenosis. Mild is less than 50% stenosis. Moderate is 50-69% stenosis. Severe is 70% to 99% stenosis. Total occlusion is no detectable patent lumen. Laboratory Results WBC 8.4 10^3/uL (4.0-10.0) 12/11/21 16:50 RBC 5.13 10^6/uL (4.1-5.3) 12/11/21 16:50 Hgb 16.4 g/dL (11.7-16.6) 12/11/21 16:50 Hct 48.6 % (42.0-52.0) 12/11/21 16:50 MCV 94.7 fl (80-94) H 12/11/21 16:50 MCH 32.0 pg (28.0-34.0) 12/11/21 16:50 MCHC 33.7 g/dL (30.0-36.0) 12/11/21 16:50 RDW 13.2 % (12.1-15.1) 12/11/21 16:50 Plt Count 219 10^3/cmm (130-400) 12/11/21 16:50 MPV 9.8 fL (7.4-10.4) 12/11/21 16:50 Neut % (Auto) 60.0 % 12/11/21 16:50 Lymph % (Auto) 27.5 % 12/11/21 16:50 [place] % (Auto) 9.7 % 12/11/21 16:50 Eos % (Auto) 1.9 % 12/11/21 16:50 Baso % (Auto) 0.5 % 12/11/21 16:50 Neut # (Auto) 5.02 10^3/uL (1.8-7.7) 12/11/21 16:50 Lymph # (Auto) 2.3 10^3/uL (0.8-4.8) 12/11/21 16:50 [place] # (Auto) 0.8 10^3/uL (0.2-0.9) 12/11/21 16:50 Eos # (Auto) 0.2 10^3/uL (0.0-0.8) 12/11/21 16:50 Baso # (Auto) 0.0 10^3/uL (0.0-0.1) 12/11/21 16:50 Nucleated RBC % (auto) 0 % 12/11/21 16:50 Nucleated RBCs # 0.0 /100WBC 12/11/21 16:50 Sodium 139 mmol/L (136-145) 12/11/21 16:50 Potassium 4.6 mmol/L (3.5-5.1) 12/11/21 16:50 Chloride 103 mmol/L (98-107) 12/11/21 16:50 Carbon Dioxide 26 mmol/L (22-29) 12/11/21 16:50 Anion Gap 14.6 (5-19) 12/11/21 16:50 BUN 18 mg/dL (8-23) 12/11/21 16:50 Creatinine 1.4 mg/dL (0.7-1.2) H 12/11/21 16:50 GFR Calculation Not Reportable 12/11/21 16:50 Glucose 92 mg/dL (65-115) 12/11/21 16:50 Calculated Osmolality 290 mOsm/kg (285-295) 12/11/21 16:50 Calcium 9.4 mg/dL (8.5-10.5) 12/11/21 16:50 Total Bilirubin 0.4 mg/dL (0.15-1.2) 12/11/21 16:50 AST 31 U/L (0-40) 12/11/21 16:50 ALT 21 U/L (0-41) 12/11/21 16:50 Alkaline Phosphatase 62 U/L (40-130) 12/11/21 16:50 Troponin T Baseline 14 ng/L (0-15) 12/11/21 16:50 Troponin T 120 Minute 13.07 ng/L (0-15) 12/11/21 18:31 Delta Troponin T -0.93 ABS# (0-10) L 12/11/21 18:31 Total Protein 7.4 g/dL (6.6-8.7) 12/11/21 16:50 Albumin 4.2 g/dL (3.5-5.2) 12/11/21 16:50 Globulin 3.2 g/dL (1.3-4.6) 12/11/21 16:50 Urine Color Yellow (Yellow) 12/11/21 18:25 Urine Appearance Clear (CLEAR) 12/11/21 18:25 Urine pH 7.0 (5-7) 12/11/21 18:25 Ur Specific [place] 1.015 (1.005-1.030) 12/11/21 18:25 Urine Protein Negative 12/11/21 18:25 Urine Glucose (UA) Negative (Normal) 12/11/21 18:25 Urine Ketones Negative (Negative) 12/11/21 18:25 Urine Blood Negative (Negative) 12/11/21 18:25 Urine Nitrate Negative 12/11/21 18:25 Urine Bilirubin Negative (Negative) 12/11/21 18:25 Urine Urobilinogen 0.2 mg/dL (Negative) 12/11/21 18:25 Ur Leukocyte Esterase Negative (Negative) 12/11/21 18:25 Discharge Plan Discharge Patient Disposition: Home Clinical Impression: Acute confusion due to medical condition Condition: Stable Prescriptions: No Action magnesium oxide 400 mg magnesium capsule 400 mg PO DAILY ibuprofen 200 mg capsule 200 mg PO Q6H PRN vitamin B complex [B Complex-Vitamin B12] Tablet 1 tab PO DAILY fluticasone propionate [Children's Flonase Allergy Rlf] 50 mcg/actuation s pray,suspension 1 spray intranasal DAILY PRN Rx Instructions: administer into each nostril sulfamethoxazole-trimethoprim 800-160 mg tablet 1 tab PO BID PRN finasteride 5 mg tablet See Rx Instructions .ROUTE .COMPLEX PRN Dose Instruction: Take 1 tablet by mouth once daily Rx Instructions: Take 1 tablet by mouth once daily PRN; multivitamin Tablet 1 tab PO DAILY levothyroxine 75 mcg capsule 75 mcg PO DAILY metoprolol succinate 25 mg tablet extended release 24 hr 25 mg PO DAILY Qty: 90 3RF Discharge Orders: Discharge ED (Routine); Ordered 12/11/21 Ordered By: Shawn Cantor Referrals: Bradley Marquis DO [Primary Care Provider] - 1-3 days Discharge Diet: Advance as tolerated Discharge Activity: Limit activity as instructed Patient Instructions: Altered Mental Status (ED) Activity Restrictions/Additional Instructions: Check your blood pressure twice daily. Monitor for fever. Decrease your activity level until your MRI scan can be completed and you have followed up with your doctor. Return for any return of your symptoms Coding Level of Care Code ED Circulation Man for Shruthi Fwd Exam Comprehensive
--- NOTE | 2021-12-11 16:55 | CTR_ITS ---
PROCEDURE INFORMATION: Exam: CT Head Without Contrast Exam date and time: 12/11/2021 6:05 PM Age: 76 years old Clinical indication: Altered mental status/memory loss; Confusion or disorientation; Additional info: AMS TECHNIQUE: Imaging protocol: Computed tomography of the head without contrast. Radiation optimization: All CT scans at this facility use at least one of these dose optimization techniques: automated exposure control; mA and/or kV adjustment per patient size (includes targeted exams where dose is matched to clinical indication); or iterative reconstruction. COMPARISON: CT head wo con* [id number] 11/08/2021 3:33 PM RADIATION DOSE METRICS: Total DLP (mGy-cm): 1243.78 FINDINGS: Brain: No hemorrhage. No edema. Moderate diffuse cerebral atrophy. No significant white matter disease. No mass effect. Cerebral ventricles: No ventriculomegaly. Paranasal sinuses: Visualized sinuses are unremarkable. No fluid levels. Mastoid air cells: Visualized mastoid air cells are well aerated. Bones/joints: Unremarkable. No acute fracture. Soft tissues: Unremarkable. CT/CT head wo con* [id number] IMPRESSION: No acute intracranial abnormality.
--- NOTE | 2021-12-11 16:56 | XRR_ITS ---
PROCEDURE INFORMATION: Exam: XR Chest Exam date and time: 12/11/2021 5:17 PM Age: 76 years old Clinical indication: Cough and dyspnea; Additional info: Dyspnea/cough TECHNIQUE: Imaging protocol: Radiologic exam of the chest. Views: 1 view. COMPARISON: CR XR chest 1V portable [id number] 03/15/2020 3:30 AM FINDINGS: Lungs: Unremarkable. No consolidation. Pleural spaces: Unremarkable. No pleural effusion. No pneumothorax. Heart/Mediastinum: Unremarkable. No cardiomegaly. Bones/joints: Unremarkable. XR/XR chest 1V portable [id number] IMPRESSION: No acute findings.
--- NOTE | 2021-12-11 16:56 | ECG_ITS ---
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 Measurements Intervals [place] Rate: 58 P: 64 KS: 141 QRS: 53 QRSD: 86 T: 37 QT: 387 QTc: 383 Interpretive Statements SINUS BRADYCARDIA Compared to ECG 11/08/2021 13:55:21 No significant changes Electronically Signed On 12-11-2021 19:09:46 CDT by Lesley Fields M.D. [email or web address]
[2021-12-11 17:05] LABS: Basophils % 0.5 %; Eosinophils # 0.2 10^3/uL (0.0-0.8); Eosinophils % 1.9 %; Hematocrit 48.6 % (42.0-52.0); Hemoglobin 16.4 g/dL (11.7-16.6); Lymphocytes # 2.3 10^3/uL (0.8-4.8); Lymphocytes % 27.5 %; Mean Corpuscular HGB Conc 33.7 g/dL (30.0-36.0); Mean Corpuscular Volume 94.7 fl (80-94); Mean Platelet Volume 9.8 fL (7.4-10.4); Monocytes # 0.8 10^3/uL (0.2-0.9); Monocytes % 9.7 %; Neutrophils # 5.02 10^3/uL (1.8-7.7); Nucleated Red Blood Cells % 0 %; Platelet Count 219 10^3/cmm (130-400); Red Blood Count 5.13 10^6/uL (4.1-5.3); Red Cell Distribution Width 13.2 % (12.1-15.1); White Blood Count 8.4 10^3/uL (4.0-10.0)
--- NOTE | 2021-12-11 17:05 | PC.NURSE ---
pts reports pt had a spell this afternoon and pt became disoriented, pt didn't know what was going on or what he was doing. reports they were told pts blood pressure was 122/104. reports pt was seen 3 weeks ago where pt went blind for approx 5 minutes, nothing was found. pt has an MRI of his head scheduled 12/15. Pt is alert and oriented to person, place, and time. face symmetrical. skin pink/warm/dry. speech clear. speaking in complete sentences without difficulty. No arm or leg drift. 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 Pt c/o a slight headache.
--- NOTE | 2021-12-11 17:12 | CTR_ITS ---
PROCEDURE INFORMATION: Exam: CTA Head With Contrast, Arteriography Exam date and time: 12/11/2021 6:08 PM Age: 76 years old Clinical indication: Other: Confusion; Additional info: AMS TECHNIQUE: Imaging protocol: Computed tomographic angiography of the head with contrast. Exam focused on the arteries. 3D rendering (Not supervised by radiologist): MIP and/or 3D reconstructed images were created by the technologist. Radiation optimization: All CT scans at this facility use at least one of these dose optimization techniques: automated exposure control; mA and/or kV adjustment per patient size (includes targeted exams where dose is matched to clinical indication); or iterative reconstruction. Contrast material: OMNIPAQUE 350; Contrast volume: 95 ml; Contrast route: INTRAVENOUS (IV); COMPARISON: CT angio headneck* [id number] 11/08/2021 3:37 PM RADIATION DOSE METRICS: Total DLP (mGy-cm): 409.85 FINDINGS: ANTERIOR CIRCULATION: Right internal carotid artery: Intracranial segment is patent with no significant stenosis. No aneurysm. Right middle cerebral artery: No occlusion or significant stenosis. No aneurysm. Right anterior cerebral artery: No occlusion or significant stenosis. No aneurysm. Left internal carotid artery: Intracranial segment is patent with no significant stenosis. No aneurysm. Left middle cerebral artery: No occlusion or significant stenosis. No aneurysm. Left anterior cerebral artery: No occlusion or significant stenosis. No aneurysm. POSTERIOR CIRCULATION: Right vertebral artery: No occlusion or significant stenosis. No aneurysm. Left vertebral artery: No occlusion or significant stenosis. No aneurysm. Basilar artery: No occlusion or significant stenosis. No aneurysm. Right posterior cerebral artery: No occlusion or significant stenosis. No aneurysm. Left posterior cerebral artery: No occlusion or significant stenosis. No aneurysm. Brain: No definite mass, mass effect, or midline shift. Cerebral ventricles: No ventriculomegaly. Bones/joints: Unremarkable. No acute fracture. Soft tissues: Unremarkable. PROCEDURE INFORMATION: Exam: CTA Neck With Contrast Exam date and time: 12/11/2021 6:08 PM Age: 76 years old Clinical indication: Other: Confusion; Additional info: AMS TECHNIQUE: Imaging protocol: Computed tomographic angiography of the neck with contrast. 3D rendering (Not supervised by radiologist): MIP and/or 3D reconstructed images were created by the technologist. Radiation optimization: All CT scans at this facility use at least one of these dose optimization techniques: automated exposure control; mA and/or kV adjustment per patient size (includes targeted exams where dose is matched to clinical indication); or iterative reconstruction. Contrast material: OMNIPAQUE 350; Contrast volume: 95 ml; Contrast route: INTRAVENOUS (IV); COMPARISON: CT angio headneck* [id number] 11/08/2021 3:37 PM RADIATION DOSE METRICS: Total DLP (mGy-cm): 409.85 FINDINGS: Right common carotid artery: No stenosis. No dissection or occlusion. Right internal carotid artery: No stenosis of the extracranial segment. No dissection or occlusion. Right external carotid artery: No occlusion or stenosis of the origin. Left common carotid artery: No stenosis. No dissection or occlusion. Left internal carotid artery: No stenosis of the extracranial segment. No dissection or occlusion. Left external carotid artery: No occlusion or stenosis of the origin. Right vertebral artery: No stenosis. No dissection or occlusion. Left vertebral artery: No stenosis. No dissection or occlusion. Soft tissues: Normal. No significant soft tissue swelling. Bones/joints: No acute fracture. CT/CT angio headne* [id number] IMPRESSION: No large vessel stenosis or occlusion. IMPRESSION: No stenosis or occlusion. REFERENCES: NASCET CRITERIA. The degree of stenosis in the cervical segment of the internal carotid artery is based on NASCET criteria. Normal is no stenosis. Mild is less than 50% stenosis. Moderate is 50-69% stenosis. Severe is 70% to 99% stenosis. Total occlusion is no detectable patent lumen.
[2021-12-11 17:57] LABS: Troponin(5th) Baseline 14 ng/L (0-15)
[2021-12-11 17:58] LABS: Alanine Aminotransferase 21 U/L (0-41); Albumin Level 4.2 g/dL (3.5-5.2); Alkaline Phosphatase 62 U/L (40-130); Blood Urea Nitrogen 18 mg/dL (8-23); Calcium 9.4 mg/dL (8.5-10.5); Carbon Dioxide 26 mmol/L (22-29); Chloride 103 mmol/L (98-107); Creatinine Clr Calc Pharmacy 41.6838; Globulin 3.2 g/dL (1.3-4.6); Glucose 92 mg/dL (65-115); Osmolality Calculated 290 mOsm/kg (285-295); Sodium 139 mmol/L (136-145); Total Bilirubin 0.4 mg/dL (0.15-1.2); Total Protein 7.4 g/dL (6.6-8.7)
[2021-12-11 18:03] LABS: Anion Gap 14.6 (5-19); Aspartate Amino Transferase 31 U/L (0-40); Potassium 4.6 mmol/L (3.5-5.1)
[2021-12-11] MEDS: iohexol 350 mg/mL 100 mL Btl IV (18:14)
--- NOTE | 2021-12-11 18:41 | PC.NURSE ---
pt resting in bed, family at bedside. pt denies needs at this time. call light within reach.
[2021-12-11 18:56] LABS: Add Urine Microscopic? NO; Charge for UA Resulting for Rev
--- NOTE | 2021-12-11 18:56 | ECG_ITS ---
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 Measurements Intervals Perry Rate: 56 P: 63 OK: 161 QRS: 47 QRSD: 88 T: 28 QT: 406 QTc: 394 Interpretive Statements SINUS BRADYCARDIA Compared to ECG 12/11/2021 17:07:08 No significant changes Electronically Signed On 12-13-2021 22:08:23 CDT by Walter Espinosa M.D. [email or web address] ([email or web address] centerFlowboardst. anthony's hospitalMainstay Medical/store/OM/[id number]
[2021-12-11 18:58] LABS: Bilirubin Urine Negative (Negative); Blood Urine Negative (Negative); Glucose Urine UA Negative (Normal); Ketones Urine Negative (Negative); Leukocyte Esterase Urine Negative (Negative); Nitrate Urine Negative; Protein Urine Negative; Specific Gravity, Urine 1.015 (1.005-1.030); Urine Appearance Clear (CLEAR); Urine Color Yellow (Yellow); Urobilinogen Urine 0.2 mg/dL (Negative)
[2021-12-11 19:00] LABS: Troponin 5 2HR 13.07 ng/L (0-15)
--- NOTE | 2021-12-11 19:01 | PC.NURSE ---
report given to ZANA Guillen
[2021-12-11 19:10] LABS: Troponin 5 2HR Delta -0.93 ABS# (0-10)
--- NOTE | 2021-12-11 19:10 | PC.NURSE ---
assumed care of patient at this time.
== END 2021-12-11 19:50 | disposition home or self-care (01) ==
PROVIDERS: Family Medicine; Emergency Provider Emergency Medicine; PCP Internal Medicine
DX: R41.0 Disorientation, unspecified (principal)
CPT/HCPCS: 70450; 70496; 70498; 71045; 80053; 81003; 84484; 85025; 93005; 99285; Q9967

== ENCOUNTER 2021-12-15 13:13 | Outpatient (CLI) | payer MEDICARE, OTHER, SELFPAY ==
--- NOTE | 2021-12-15 15:40 | MR_ITS ---
WS: [id number] MRI BRAIN WITHOUT CONTRAST HISTORY: TIA COMPARISON: CT head 12/11/2021 TECHNIQUE: Diffusion imaging, multiplanar T1, T2 and FLAIR imaging obtained. No evidence for acute infarct or hemorrhage. Coyle-white matter differentiation is normal. No prior infarcts. Mild small vessel ischemic disease. Very mild cerebral and cerebellar atrophy. Ventricles and extra-axial spaces are normal. No inferior displacement of cerebellar tonsils. The sella turcica and pituitary gland are unremarkabl e. Dural venous sinuses and k[place] of Duarte demonstrate no abnormality on this unenhanced studies. Paranasal sinuses: Clear. Mastoid air cells: Normal. Calvarium and scalp: Intact. MR/MR head wo con* [id number] IMPRESSION: 1. No acute infarct, no mass effect. 2. Very mild atrophy and small vessel ischemic disease. 3. No abnormality along the optic chiasm.
== END 2021-12-15 13:14 | disposition home or self-care (01) ==
LOC: RAD 13:14
PROVIDERS: PCP Internal Medicine; Visit Provider Family Medicine
DX: G45.9 Transient cerebral ischemic attack, unspecified (principal); I67.82 Cerebral ischemia
CPT/HCPCS: 70551

== ENCOUNTER → 2022-01-05 11:40 | Outpatient (BNVA) | payer MEDICARE, OTHER, SELFPAY | PROVIDERS: PCP Internal Medicine; Visit Provider Internal Medicine Cardiovascular Disease | DX: I47.1 Supraventricular tachycardia (principal); H54.62 Unqualified visual loss, left eye, normal vision right eye; G45.9 Transient cerebral ischemic attack, unspecified | CPT/HCPCS: 99214 ==

== ENCOUNTER → 2022-02-16 08:55 | Outpatient (BNVA) | payer MEDICARE, OTHER, SELFPAY | PROVIDERS: PCP Internal Medicine; Visit Provider Nurse Practitioner Family | DX: I47.1 Supraventricular tachycardia (principal) | CPT/HCPCS: 99213 ==

== ENCOUNTER 2022-02-27 18:40 | Emergency (ER) | payer MEDICARE, OTHER, SELFPAY ==
[2022-02-27 18:52] VITALS: BP 131/68; PULSE 68; RESP 16; TEMP 36.9; O2SAT 98; BMI 24.5
[2022-02-27 20:00] VITALS: BP 114/67; PULSE 63; RESP 15; O2SAT 97
[2022-02-27 20:04] LABS: Basophils % 0.5 %; Eosinophils # 0.1 10^3/uL (0.0-0.8); Eosinophils % 1.8 %; Hematocrit 44.6 % (42.0-52.0); Hemoglobin 15.4 g/dL (11.7-16.6); Lymphocytes # 2.3 10^3/uL (0.8-4.8); Mean Corpuscular HGB Conc 34.5 g/dL (30.0-36.0); Mean Corpuscular Hemoglobin 32.4 pg (28.0-34.0); Mean Corpuscular Volume 93.9 fl (80-94); Mean Platelet Volume 9.5 fL (7.4-10.4); Monocytes # 0.8 10^3/uL (0.2-0.9); Monocytes % 10.7 %; Neutrophils % 57.7 %; Nucleated Red Blood Cells % 0 %; Platelet Count 240 10^3/cmm (130-400); Red Blood Count 4.75 10^6/uL (4.1-5.3); Red Cell Distribution Width 12.7 % (12.1-15.1); White Blood Count 7.8 10^3/uL (4.0-10.0)
[2022-02-27 20:15] LABS: INR 1.01 (0.8-1.2); Partial Thromboplastin Time 27.5 SECONDS (23.9-36.7)
[2022-02-27 20:20] LABS: Alanine Aminotransferase 13 U/L (0-41); Albumin Level 3.7 g/dL (3.5-5.2); Alkaline Phosphatase 59 U/L (40-130); Anion Gap 12.1 (5-19); Aspartate Amino Transferase 18 U/L (0-40); Blood Urea Nitrogen 19 mg/dL (8-23); Carbon Dioxide 27 mmol/L (22-29); Chloride 105 mmol/L (98-107); Globulin 2.7 g/dL (1.3-4.6); Glucose 111 mg/dL (65-115); Osmolality Calculated 293 mOsm/kg (285-295); Potassium 4.1 mmol/L (3.5-5.1); Sodium 140 mmol/L (136-145); Total Bilirubin 0.2 mg/dL (0.15-1.2); Total Protein 6.4 g/dL (6.6-8.7)
[2022-02-27 20:27] LABS: Urine Appearance Cloudy (CLEAR); Urine Color Red (Yellow); pH Urine 8 (5-7)
[2022-02-27 20:28] LABS: Add Urine Microscopic? YES; Bilirubin Urine Neg (Negative); Blood Urine 3+ (Negative); Glucose Urine UA Norm (Normal); Ketones Urine Negative (Negative); Leukocyte Esterase Urine Negative (Negative); Nitrate Urine Negative (Negative); Protein Urine 1+ (Negative); Sulfosalicylic Acid Urine Positive (Negative); Urobilinogen Urine Neg (Negative)
[2022-02-27 20:31] LABS: Add Urine Culture? No; RBC Urine TOO NUMEROUS TO CNT /hpf (0-2); WBC Urine 0-4 /hpf (0-5)
[2022-02-27 22:00] VITALS: BP 132/74; PULSE 61; RESP 16; O2SAT 95
--- NOTE | 2022-02-27 22:08 | W.ED.MALEGU ---
HPI - Male Genitourinary General: Chief complaint: Urogenital-Male Stated complaint: bloody urine on blood thinners Time Seen by Provider: 02/27/22 19:10 Source: patient and family History of Present Illness: 77-year-old male with a history of obstructive uropathy. He self caths at home. He was recently placed on blood thinners (clopidogrel from what I can tell) a month or so ago. This morning he self cath, and had some bleeding which is not unusual. What is unusual is that the bleeding is continued with passage of clots in his urine. He is still able to void, but feels pressure and has to void quite frequently. He became concerned when he saw clotting. He has very little pain at this point. MD Complaint: other Onset (ago): hour(s) Duration: intermittent Location: abdomen Severity: mild Exacerbating factors: urination Associated symptoms: Reports hematuria and urinary retention (Potentially); Deny dysuria, fevers/chills, nausea, swelling, urinary incontinence or vomiting Review of Systems Const: Denies: fever(s) or chills Card: Denies: chest pain or palpitations Resp: Denies: dyspnea or productive cough GI: Denies: nausea or vomiting : Reports: hematuria; Denies: dysuria or urinary incontinence Musc: Denies: back pain Skin/Breast: Denies: rash PFSH ED PFSH: Medical History Chronic prostatitis Elevated PSA History of nonmelanoma skin cancer GERARDO (obstructive sleep apnea) SVT (supraventricular tachycardia) Transient ischemic attack Urethral stricture Surgical History H/O hand surgery Left thumb tendon repair S/P cystourethroscopy with dilation of urethral stricture 2013 S/P hernia repair Left inguinal S/P TURP 2012 Family History Father , at age 74 Heart disease Mother , at age 93 Heart disease Dementia Social History Smoking and tobacco status: never smoked Alcohol intake: never Adopted: No Caregiver/support person: No Lives independently: No Household members: spouse Marital status: Current occupational status: retired History of recent travel: No Physical Exam Const: COMMON NORMALS: no acute distress GENERAL APPEARANCE: cooperative and comfortable HENMT: COMMON NORMALS: normocephalic, atraumatic and Normal external nose present HEAD & SCALP: normocephalic and atraumatic FACE & SINUS: normal facial exam and face symmetric NOSE: Normal external nose present Eye: COMMON NORMALS: Equal, round and reactive pupils present and EOMs intact bilaterally PUPIL: Yes Equal, round and reactive pupils present Chest: COMMONS NORMALS: normal inspection of the chest Resp: COMMON NORMALS: normal respiratory effort, No use of accessory muscles and clear to auscultation bilaterally AUSCULTATION: clear to auscultation bilaterally Cardio: COMMON NORMALS: regular rate and regular rhythm RATE: regular rate RHYTHM: regular rhythm GI: COMMON NORMALS: Normal to inspection, nondistended, normoactive bowel sounds present and Soft to palpation PALPATION: Yes Soft to palpation Course Vital Signs: Vital signs: Vital Signs Temperature 98.4 F 02/27/22 18:52 Pulse Rate 63 02/27/22 20:00 Respiratory Rate 15 02/27/22 20:00 Blood Pressure 114/67 02/27/22 20:00 Pulse Oximetry 97 02/27/22 20:00 Oxygen Delivery Me thod 02/27/22 20:00 [facility] - Male Medical Decision Making 77-year-old male gentleman. He has gross hematuria. Three-way Mosher was inserted, and CBI was started. The patient has had about 3 L flush through, and fluid in the bag is now a very light pink color. No clots. He will be allowed home with a Mosher catheter. He will follow-up with urology. He will return for any problems Lab Data 02/27/22 19:56 02/27/22 19:56 Laboratory Results WBC 7.8 10^3/uL (4.0-10.0) 02/27/22 19:56 RBC 4.75 10^6/uL (4.1-5.3) 02/27/22 19:56 Hgb 15.4 g/dL (11.7-16.6) 02/27/22 19:56 Hct 44.6 % (42.0-52.0) 02/27/22 19:56 MCV 93.9 fl (80-94) 02/27/22 19:56 MCH 32.4 pg (28.0-34.0) 02/27/22 19:56 MCHC 34.5 g/dL (30.0-36.0) 02/27/22 19:56 RDW 12.7 % (12.1-15.1) 02/27/22 19:56 Plt Count 240 10^3/cmm (130-400) 02/27/22 19:56 MPV 9.5 fL (7.4-10.4) 02/27/22 19:56 Neut % (Auto) 57.7 % 02/27/22 19:56 Lymph % (Auto) 29.0 % 02/27/22 19:56 Laurel % (Auto) 10.7 % 02/27/22 19:56 Eos % (Auto) 1.8 % 02/27/22 19:56 Baso % (Auto) 0.5 % 02/27/22 19:56 Neut # (Auto) 4.50 10^3/uL (1.8-7.7) 02/27/22 19:56 Lymph # (Auto) 2.3 10^3/uL (0.8-4.8) 02/27/22 19:56 Laurel # (Auto) 0.8 10^3/uL (0.2-0.9) 02/27/22 19:56 Eos # (Auto) 0.1 10^3/uL (0.0-0.8) 02/27/22 19:56 Baso # (Auto) 0.0 10^3/uL (0.0-0.1) 02/27/22 19:56 Nucleated RBC % (auto) 0 % 02/27/22 19:56 Nucleated RBCs # 0.0 /100WBC 02/27/22 19:56 PT 13.60 SECONDS (12.1-14.9) 02/27/22 19:56 INR 1.01 (0.8-1.2) 02/27/22 19:56 APTT 27.5 SECONDS (23.9-36.7) 02/27/22 19:56 Sodium 140 mmol/L (136-145) 02/27/22 19:56 Potassium 4.1 mmol/L (3.5-5.1) 02/27/22 19:56 Chloride 105 mmol/L (98-107) 02/27/22 19:56 Carbon Dioxide 27 mmol/L (22-29) 02/27/22 19:56 Anion Gap 12.1 (5-19) 02/27/22 19:56 BUN 19 mg/dL (8-23) 02/27/22 19:56 Creatinine 1.5 mg/dL (0.7-1.2) H 02/27/22 19:56 GFR Calculation Not Reportable 02/27/22 19:56 Glucose 111 mg/dL (65-115) 02/27/22 19:56 Calculated Osmolality 293 mOsm/kg (285-295) 02/27/22 19:56 Calcium 9.0 mg/dL (8.5-10.5) 02/27/22 19:56 Total Bilirubin 0.2 mg/dL (0.15-1.2) 02/27/22 19:56 AST 18 U/L (0-40) 02/27/22 19:56 ALT 13 U/L (0-41) 02/27/22 19:56 Alkaline Phosphatase 59 U/L (40-130) 02/27/22 19:56 Total Protein 6.4 g/dL (6.6-8.7) L 02/27/22 19:56 Albumin 3.7 g/dL (3.5-5.2) 02/27/22 19:56 Globulin 2.7 g/dL (1.3-4.6) 02/27/22 19:56 Urine Color Red (Yellow) 02/27/22 19:39 Urine Appearance Cloudy (CLEAR) A 02/27/22 19:39 Urine pH 8 (5-7) H 02/27/22 19:39 Ur Specific [place] 1.010 (1.005-1.030) 02/27/22 19:39 Urine Protein 1+ (Negative) H 02/27/22 19:39 Urine Glucose (UA) Norm (Normal) 02/27/22 19:39 Urine Ketones Negative (Negative) 02/27/22 19:39 Urine Blood 3+ (Negative) H 02/27/22 19:39 Urine Nitrate Negative (Negative) 02/27/22 19:39 Urine Bilirubin Neg (Negative) 02/27/22 19:39 Prot Sulfosalicylic Acd Positive (Negative) 02/27/22 19:39 Urine Urobilinogen Neg mg/dL (Negative) 02/27/22 19:39 Ur Leukocyte Esterase Negative (Negative) 02/27/22 19:39 Urine RBC Too numerous to cnt /hpf (0-2) H 12 19:39 Urine WBC 0-4 /hpf (0-5) H 02/27/22 19:39 Ur Squamous Epith Cells None /hpf (0-5) 02/27/22 19:39 Amorphous Sediment Not Reportable 02/27/22 19:39 Urine Bacteria None /hpf (NONE) 02/27/22 19:39 Discharge Plan Discharge Patient Disposition: Home Clinical Impression: Gross hematuria Condition: Stable Prescriptions: No Action magnesium oxide 400 mg magnesium capsule 400 mg PO DAILY vitamin B complex [B Complex-Vitamin B12] Tablet 1 tab PO DAILY fluticasone propionate [Children's Flonase Allergy Rlf] 50 mcg/actuation spray,suspension 1 spray intranasal DAILY PRN Rx Instructions: administer into each nostril sulfamethoxazole-trimethoprim 800-160 mg tablet 1 tab PO BID PRN finasteride 5 mg tablet See Rx Instructions .ROUTE .COMPLEX PRN Dose Instruction: Take 1 tablet by mouth once daily Rx Instructions: Take 1 tablet by mouth once daily PRN; multivitamin Tablet 1 tab PO DAILY levothyroxine 75 mcg capsule 75 mcg PO DAILY sildenafil [Viagra] 25 mg tablet 25 mg PO DAILY PRN Rx Instructions: administer 30 minutes to 4 hours before activity clopidogrel [Plavix] 75 mg tablet 75 mg PO DAILY Qty: 30 3RF acetaminophen 325 mg capsule 325 mg PO ONCE PRN metoprolol succinate 25 mg tablet extended release 24 hr 25 mg PO DAILY Qty: 90 0RF Discharge Orders: Discharge ED (Routine); Ordered 02/27/22 Ordered By: Shawn Cantor Referrals: Bradley Marquis DO [Primary Care Provider] - Patient Instructions: Mosher Catheter Placement and Care (ED), Hematuria (ED) Activity Restrictions/Additional Instructions: Call your urologist on Tuesday. Keep the Mosher catheter in until seen by them to have it removed. Return for any increasing belly distention, pain, passage of clots, or failure of the catheter to drain urine. Return also for fever mental status changes or any other concerning symptoms. Coding Level of Care Code ED Door Manager for Chg Fwd Exam Detailed
[2022-02-27 23:00] VITALS: BP 128/76; PULSE 62; RESP 15; O2SAT 95
[2022-02-27 23:30] VITALS: BP 128/76; PULSE 60; RESP 15; O2SAT 95
[2022-02-28 00:17] VITALS: BP 128/76; PULSE 60; RESP 15; O2SAT 95
== END 2022-02-27 23:58 | disposition home or self-care (01) ==
PROVIDERS: Emergency Provider Emergency Medicine; PCP Internal Medicine
DX: R31.0 Gross hematuria (principal); Z79.02 Long term (current) use of antithrombotics/antiplatelets; Z86.73 Personal history of transient ischemic attack (TIA), and cerebral infarction without residual deficits
CPT/HCPCS: 51702; 51798; 80053; 81001; 85025; 85610; 85730; 99283

== ENCOUNTER 2022-03-01 22:04 | Emergency (ER) | payer MEDICARE, OTHER, SELFPAY ==
[2022-03-01 22:23] VITALS: BP 134/66; PULSE 66; RESP 18; TEMP 36.3; O2SAT 95; BMI 22.7
--- NOTE | 2022-03-01 22:31 | ED_ITS ---
HPI - Male Genitourinary General: Chief complaint: Urogenital-Male Stated complaint: Cath Not working Time Seen by Provider: 03/01/22 22:08 History of Present Illness: 77-year-old male patient comes in today for complaints of bladder spasms and decreased urinary outflow of Mosher catheter. Patient appears nontoxic. Patient appears in no pain. Patient had the catheter placed 2 days ago for hematuria. Patient was seen in urology clinic this morning and recommended to leave the catheter in place for 2 weeks. Review of Systems : Reports: other (Mosher catheter poorly draining, bladder spasms) PFSH ED PFSH: Medical History Chronic prostatitis Elevated PSA History of nonmelanoma skin cancer GERARDO (obstructive sleep apnea) SVT (supraventricular tachycardia) Transient ischemic attack Urethral stricture Surgical History H/O hand surgery Left thumb tendon repair S/P cystourethroscopy with dilation of urethral stricture 2013 S/P hernia repair Left inguinal S/P TURP 2012 Family History Father , at age 74 Heart disease Mother , at age 93 Heart disease Dementia Social History Smoking and tobacco status: never smoked Alcohol intake: never Adopted: No Caregiver/support person: No Lives independently: No Household members: spouse Marital status: Current occupational status: retired History of recent travel: No Physical Exam Const: COMMON NORMALS: alert HENMT: COMMON NORMALS: normocephalic HEAD & SCALP: normocephalic Neck/C-Spine: COMMON NORMALS: full ROM Resp: COMMON NORMALS: normal respiratory effort Cardio: COMMON NORMALS: regular rate and regular rhythm RATE: regular rate RHYTHM: regular rhythm GI: COMMON NORMALS: Soft to palpation PALPATION: Yes Soft to palpation : COMMON NORMALS: Yes no CVA tenderness BLADDER/KIDNEY EXAM: Yes no CVA tenderness Back/Pelvis: COMMON NORMALS: no CVA tenderness Extremity: COMMON NORMALS: no pedal edema Neuro: SENSORIUM/ORIENTATION: Yes alert Skin: COMMON NORMALS: turgor normal GENERAL SKIN EXAM: turgor normal Course Vital Signs: Vital signs: Vital Signs Temperature 97.3 F L 03/01/22 22:23 Pulse Rate 66 03/01/22 22:23 Respiratory Rate 18 03/01/22 22:23 Blood Pressure 134/66 03/01/22 22:23 Pulse Oximetry 95 03/01/22 22:23 Oxygen Delivery Me thod 03/01/22 22:23 MDM - Male Medical Decision Making 77-year-old male patient comes in today for complaints of poorly draining Mosher catheter. On exam patient has soft abdomen. There is some yellow urine noted in the drainage bag. Patient does report some flow around the catheter. Differential diagnosis includes but not limited to dysfunction of Mosher catheter, clot in the urinary bladder, UTI. Patient's catheter was irrigated with 50 mL of saline and drained out. Bladder scan prior to irrigation only noted 90 mL in the bladder. Patient was monitored for 2 hours and 200 mL was drained from catheter. Patient reported improved symptoms. Discharge Plan Discharge Patient Disposition: Home Clinical Impression: Complication, blocked Mosher catheter Qualifiers: Encounter type: initial encounter Qualified Code(s): T83.091A - Other mechanical complication of indwelling urethral catheter, initial encounter Condition: Stable Prescriptions: No Action magnesium oxide 400 mg magnesium capsule 400 mg PO DAILY vitamin B complex [B Complex-Vitamin B12] Tablet 1 tab PO DAILY fluticasone propionate [Children's Flonase Allergy Rlf] 50 mcg/actuation spray,suspension 1 spray intranasal DAILY PRN Rx Instructions: administer into each nostril sulfamethoxazole-trimethoprim 800-160 mg tablet 1 tab PO BID PRN finasteride 5 mg tablet See Rx Instructions .ROUTE .COMPLEX PRN Dose Instruction: Take 1 tablet by mouth once daily Rx Instructions: Take 1 tablet by mouth once daily PRN; multivitamin Tablet 1 tab PO DAILY levothyroxine 75 mcg capsule 75 mcg PO DAILY sildenafil [Viagra] 25 mg tablet 25 mg PO DAILY PRN Rx Instructions: administer 30 minutes to 4 hours before activity acetaminophen 325 mg capsule 325 mg PO ONCE PRN metoprolol succinate 25 mg tablet extended release 24 hr 25 mg PO DAILY Qty: 90 0RF Discharge Orders: Discharge ED (Routine); Ordered 03/02/22 Ordered By: Thony Vargas Referrals: Bradley Marquis DO [Primary Care Provider] - Discharge Diet: Usual diet Discharge Activity: Resume usual activity Patient Instructions: Mosher Catheter Care Activity Restrictions/Additional Instructions: Continue antibiotic 1 tablet twice a day for the next 5 days. Irrigate catheter as needed. Drink plenty of water. Follow-up with primary care as needed. Call urologist for further support. Return to ER for worsening symptoms such as blood in the catheter, high fever, or new concerns. Coding Level of Care Code ED Instrument Sterilizer for Shruthi Fwmalik Exam Comprehensive
--- NOTE | 2022-03-01 22:56 | PC.NURSE ---
bladder scan performed and found to have 96 ml urine in bladder. leg bag noted to be draining. patients 3 way aleman flushed witha pprox 50 ml sterile water with no difficulties. patient in no obivous distress.
--- NOTE | 2022-03-01 23:52 | PC.NURSE ---
patients urinary catheter draining yellow/orangish urine to leg bag with no difficulties. leg bag emptied with approx 220 ml of return . Patient denies pain/spasms while in triage. Patient in no obivous distress. Provider Sam notified.
[2022-03-02 00:22] LABS: Bilirubin Urine 2+ (Negative); Blood Urine 3+ (Negative); Glucose Urine UA Norm (Normal); Ketones Urine Negative (Negative); Nitrate Urine Positive (Negative); Protein Urine 3+ (Negative); Specific Gravity, Urine 1.015 (1.005-1.030); Urine Appearance SL Hazy (CLEAR); Urine Color Orange (Yellow); pH Urine 6 (5-7)
[2022-03-02 00:23] VITALS: BP 134/67; PULSE 69; RESP 17; O2SAT 98
[2022-03-02 00:23] LABS: Add Urine Microscopic? YES; Leukocyte Esterase Urine 1+ (Negative); Urobilinogen Urine 4+ mg/dL (Negative)
[2022-03-02 00:24] LABS: Add Urine Culture? Yes; Bacteria Urine 1+ /hpf; RBC Urine TOO NUMEROUS TO CNT /hpf (0-2); WBC Urine 15-25 /hpf (0-5)
== END 2022-03-02 00:26 | disposition home or self-care (01) ==
PROVIDERS: Emergency Provider Nurse Practitioner Family; PCP Internal Medicine
DX: T83.091A Other mechanical complication of indwelling urethral catheter, initial encounter (principal); Y83.8 Other surgical procedures as the cause of abnormal reaction of the patient, or of later complication, without mention of misadventure at the time of the procedure
CPT/HCPCS: 81001; 81003; 87086; 99283

== ENCOUNTER 2022-03-06 11:40 | Emergency (ER) | payer MEDICARE, OTHER, SELFPAY ==
[2022-03-06 11:50] VITALS: BP 135/72; PULSE 68; RESP 16; TEMP 36.8; O2SAT 97; BMI 23.3
--- NOTE | 2022-03-06 11:52 | ED_ITS ---
HPI - Male Genitourinary General: Chief complaint: Urogenital-Male Stated complaint: Blood in catheter Time Seen by Provider: 03/06/22 11:51 History of Present Illness: Mr. Walden is a 77-year-old gentleman with history of TURP, chronic prostatitis, frequent urinary infections, history of intermittent self cath with recent history of catheter placement for hematuria and bladder clots presenting to the emergency department due to concern over increased redness and urine passage around the catheter. He was previously seen on 02/27 for hematuria at which time a catheter was inserted. He subsequently had return on 03/01 for blocked catheter requiring irrigation. Over the past f ew days he has noticed increased bladder spasms despite treatment with Bactrim and Azo. Additionally he notes with the spasms of urine that passes around the catheter and out the urethra. Today's noticed color difference in his catheter leg bag. Intensity symptoms when spasming is moderate to severe. Has 10-12 spasms per day. Denies other signs of hypovolemia or illness. No other specific changes in health, exacerbating, or alleviating factors identified. Onset (ago): day(s) Duration: intermittent Location: abdomen Severity: moderate Quality: other (Spasming) Relieving factors: none Exacerbating factors: none Context: indwelling catheter Associated symptoms: Reports no associated symptoms Review of Systems General: Reports: 10 or more systems reviewed and unremarkable except in HPI and below PFSH ED PFSH: Medical History Chronic prostatitis Elevated PSA History of nonmelanoma skin cancer GERARDO (obstructive sleep apnea) SVT (supraventricular tachycardia) Transient ischemic attack Urethral stricture Surgical History H/O hand surgery Left thumb tendon repair S/P cystourethroscopy with dilation of urethral stricture 2013 S/P hernia repair Left inguinal S/P TURP 2012 Family History Father , at age 74 Heart disease Mother , at age 93 Heart disease Dementia Social History Smoking and tobacco status: never smoked Alcohol intake: never Adopted: No Caregiver/support person: No Lives independently: No Household members: spouse Marital status: Current occupational status: retired History of recent travel: No Physical Exam Const: COMMON NORMALS: alert GENERAL APPEARANCE: cooperative and well developed HENMT: COMMON NORMALS: normocephalic and atraumatic HEAD & SCALP: normocephalic and atraumatic Eye: COMMON NORMALS: conjunctivae normal CONJUNCTIVA: Yes conjunctivae normal SCLERA: sclerae normal Neck/C-Spine: COMMON NORMALS: supple GENERAL: Yes trachea midline Resp: COMMON NORMALS: clear to auscultation bilaterally EFFORT & INSPECTION: Yes able to speak in complete sentences AUSCULTATION: clear to auscultation bilaterally Cardio: COMMON NORMALS: regular rate and regular rhythm RATE: regular rate RHYTHM: regular rhythm GI: COMMON NORMALS: Soft to palpation PALPATION: Yes Soft to palpation and No Tenderness to palpation present (GI) : OTHER: No scrotal or penile tenderness, no testicular tenderness, no evidence of Mosher catheter related trauma or bleeding. Extremity: GENERAL: Yes normal exam except as noted and No edema Neuro: COMMON NORMALS: moves all extremities SENSORIUM/ORIENTATION: Yes alert and No Orientation impaired Psych: COMMON NORMALS: mental status grossly normal and Normal thought process present THOUGHT PROCESS: Normal thought process present Course Vital Signs: Vital signs: Vital Signs Temperature 98.3 F 03/06/22 11:50 Pulse Rate 67 03/06/22 15:28 Respiratory Rate 16 03/06/22 15:28 Blood Pressure 113/65 03/06/22 15:28 Pulse Oximetry 94 03/06/22 15:28 MDM - Male Medical Decision Making 77-year-old gentleman presenting for concern over urinary catheter. Exam as above. Urinalysis similar to prior. No evidence of hydronephrosis on imaging. Given findings of incomplete emptying despite catheter a new cath was placed with improvement in flow after flushing. No evidence of continued hematuria. Most likely etiology of symptoms is catheter related issue. Patient will follow-up with urology. The results of ED evaluation were discussed with the patient including prescriptions and/or symptomatic cares (if applicable) including appropriate and responsible use, followup plan, and return precautions. The patient verbalized understanding and felt safe for discharge. Medical Records I reviewed the patient's medical records. Lab Data I reviewed the patient's lab results. Radiology Impressions Renal Ultrasound 03/06/22 11:58 IMPRESSION: 1. Unremarkable kidneys and bladder. 2. Prominent prostate gland. 3. Incompletely filled urinary bladder Laboratory Results Urine Color Melissa (Yellow) 03/06/22 11:40 Urine Appearance Cloudy (CLEAR) A 03/06/22 11:40 Urine pH 6 (5-7) 03/06/22 11:40 Ur Specific [place] 1.010 (1.005-1.030) 03/06/22 11:40 Urine Protein 2+ (Negative) H 03/06/22 11:40 Urine Glucose (UA) Norm (Normal) 03/06/22 11:40 Urine Ketones Negative (Negative) 03/06/22 11:40 Urine Blood 3+ (Negative) H 03/06/22 11:40 Urine Nitrate Negative (Negative) 03/06/22 11:40 Urine Bilirubin Neg (Negative) 03/06/22 11:40 Urine Urobilinogen Norm mg/dL (Negative) 03/06/22 11:40 Ur Leukocyte Esterase 2+ (Negative) H 03/06/22 11:40 Urine RBC Too numerous to cnt /hpf (0-2) H 03/06/22 11:40 Urine WBC 25-40 /hpf (0-5) H 03/06/22 11:40 Ur Squamous Epith Cells Rare /hpf (0-5) 03/06/22 11:40 Amorphous Sediment Not Reportable 03/06/22 11:40 Urine Bacteria 2+ /hpf (NONE) H 03/06/22 11:40 Discharge Plan Discharge Patient Disposition: Home Clinical Impression: Hematuria, Bladder spasms, Mosher catheter problem Condition: Stable Prescriptions: New oxybutynin chloride 5 mg tablet 5 mg PO TID PRN (Reason: bladder spasms) Qty: 30 0RF No Action magnesium oxide 400 mg magnesium capsule 400 mg PO DAILY vitamin B complex [B Complex-Vitamin B12] Tablet 1 tab PO DAILY fluticasone propionate [Children's Flonase Allergy Rlf] 50 mcg/actuation spray,suspension 1 spray intranasal DAILY PRN (Reason: Nasal Congestion) Rx Instructions: administer into each nostril sulfamethoxazole-trimethoprim 800-160 mg tablet 1 tab PO BID PRN (Reason: Catheter Insertion) finasteride 5 mg tablet 5 mg PO DAILY PRN (Reason: prostate) Dose Instruction: Take 1 tablet by mouth once daily multivitamin Tablet 1 tab PO DAILY levothyroxine 75 mcg capsule 75 mcg PO DAILY sildenafil [Viagra] 25 mg tablet 25 mg PO DAILY PRN (Reason: Sexual Activity) Rx Instructions: administer 30 minutes to 4 hours before activity acetaminophen 325 mg capsule 325 mg PO DAILY PRN (Reason: Pain) metoprolol succinate 25 mg tablet extended release 24 hr 25 mg PO DAILY Qty: 90 0RF levofloxacin 500 mg tablet 500 mg PO DAILY Qty: 14 2RF Discharge Orders: Discharge ED (Routine); Ordered 03/06/22 Ordered By: Baldo Muse Referrals: Bradley Marquis DO [Primary Care Provider] - Discharge Diet: Usual diet Discharge Activity: Increase activity as tolerated Patient Instructions: Mosher Catheter Placement and Care (ED), How to Change a Catheter Drainage Bag (DC) Activity Restrictions/Additional Instructions: Thank you for visiting the emergency department. You were seen and evaluated for Mosher catheter problems. The exact cause of your symptoms is unclear though likely related to irritation secondary to previous bladder condition. Your catheter was swapped with improvement. I believe this larger diameter Mosher is less likely to be clotted. Please continue your plan to follow-up with urology. Return to the emergency department for fevers, increased pain, blocked catheter, lightheadedness dizziness shortness of breath chest pain, or anything else that you are concerned about a feel needs emergency department evaluation. Coding Level of Care Code ED Driver'S Education Instructor for Shruthi Reese Exam Comprehensive
--- NOTE | 2022-03-06 11:58 | USR_ITS ---
PROCEDURE INFORMATION: Exam: US Retroperitoneal; Complete; Kidneys and Bladder Exam date and time: 03/06/2022 12:47 PM Age: 77 years old Clinical indication: Condition or disease; Other: Blood in catheter and urine; Additional info: Blood in catheter and urine around cath, eval clot burden TECHNIQUE: Imaging protocol: Real-time ultrasound of the retroperitoneum with image documentation. Complete exam focused on the kidneys and bladder. COMPARISON: No relevant prior studies available. FINDINGS: Right kidney: Normal. No stones. No hydronephrosis. 5.9 cm x 4.9 cm x 10.1 cm Left kidney: Normal. No stones. No hydronephrosis. 10.3 cm x 5 cm x 5.6 cm Urinary bladder: Partially decompressed no intrinsic abnormality is seen. Prostate: There is enlarged prostate gland 6 cm x 5.4 cm x 5.4 cm the tail of US/US renal BI* [id number] IMPRESSION: 1. Unremarkable kidneys and bladder. 2. Prominent prostate gland. 3. Incompletely filled urinary bladder
[2022-03-06] MEDS: oxybutynin 5 mg Tablet PO (12:11)
[2022-03-06 12:45] LABS: Blood Urine 3+ (Negative); Glucose Urine UA Norm (Normal); Ketones Urine Negative (Negative); Nitrate Urine Negative (Negative); Protein Urine 2+ (Negative); Urine Appearance Cloudy (CLEAR); Urine Color Amber (Yellow); pH Urine 6 (5-7)
[2022-03-06 12:46] LABS: Add Urine Microscopic? YES; Bilirubin Urine Neg (Negative); Leukocyte Esterase Urine 2+ (Negative); Urobilinogen Urine Norm (Negative)
[2022-03-06 12:47] LABS: RBC Urine TOO NUMEROUS TO CNT /hpf (0-2); WBC Urine 25-40 /hpf (0-5)
[2022-03-06 12:48] LABS: Bacteria Urine 2+ /hpf; Squamous Epithelial Cell Urine RARE /hpf (0-5)
[2022-03-06 12:49] LABS: Add Urine Culture? Yes
[2022-03-06 15:28] VITALS: BP 113/65; PULSE 67; RESP 16; O2SAT 94
== END 2022-03-06 15:31 | disposition home or self-care (01) ==
PROVIDERS: Emergency Provider Emergency Medicine; PCP Internal Medicine
DX: R31.9 Hematuria, unspecified (principal); N32.89 Other specified disorders of bladder; T83.9XXA Unspecified complication of genitourinary prosthetic device, implant and graft, initial encounter; Z86.73 Personal history of transient ischemic attack (TIA), and cerebral infarction without residual deficits; Y73.8 Miscellaneous gastroenterology and urology devices associated with adverse incidents, not elsewhere classified
CPT/HCPCS: 76770; 81001; 87086; 99284

== ENCOUNTER → 2022-03-10 14:46 | Outpatient (BNVA) | payer MEDICARE, OTHER, SELFPAY | PROVIDERS: PCP Internal Medicine; Visit Provider Urology | DX: N40.0 Benign prostatic hyperplasia without lower urinary tract symptoms (principal); R31.0 Gross hematuria; N99.112 Postprocedural membranous urethral stricture, male | CPT/HCPCS: 52000; 99213 ==

== ENCOUNTER 2022-03-13 03:26 | Emergency (ER) | payer MEDICARE, OTHER, SELFPAY ==
[2022-03-13 03:31] VITALS: PULSE 65; RESP 18; TEMP 36.5; O2SAT 98; BMI 22.7
--- NOTE | 2022-03-13 03:37 | ED_ITS ---
HPI - General Adult General: Chief complaint: General Medical Stated complaint: bld in urine, difficulty urinating Time Seen by Provider: 03/13/22 03:31 Source: patient Mode of arrival: ambulatory Limitations: no limitations History of Present Illness: 77-year-old male who is being seen here multiple times for urinary retention he states he recently had his Mosher catheter removed and tonight he states he has been retaining he states that he has noticed some slight blood when he is able to urinate but states he is having a very difficult time urinating. Denies any fever denies any worsening improving factors. Associated symptoms: Deny chest pain, dyspnea, headache(s), nausea, rash or vomiting Review of Systems Const: Denies: fever(s), chills, body aches or change in appetite Eyes: Denies: blurry vision or eye discomfort ENMT: Denies: throat pain or dental pain Card: Denies: chest pain Resp: Denies: dyspnea GI: Denies: abdominal pain, nausea, vomiting or diarrhea : Reports: difficulty urinating and hematuria Musc: Denies: neck pain or back pain Skin/Breast: Denies: rash Neuro: Denies: headache(s) Psych: Denies: depression Son/Lymph: Denies: easy bruising All/Imm: Denies: urticaria PFSH ED PFSH: Medical History Chronic prostatitis Elevated PSA History of nonmelanoma skin cancer GERARDO (obstructive sleep apnea) SVT (supraventricular tachycardia) Transient ischemic attack Urethral stricture Surgical History H/O hand surgery Left thumb tendon repair S/P cystourethroscopy with dilation of urethral stricture 2013 S/P hernia repair Left inguinal S/P TURP 2012 Family History Father , at age 74 Heart disease Mother , at age 93 Heart disease Dementia Social History Smoking and tobacco status: never smoked Alcohol intake: never Adopted: No Caregiver/support person: No Lives independently: No Household members: spouse Marital status: Current occupational status: retired History of recent travel: No Physical Exam Const: COMMON NORMALS: no acute distress and patient oriented x3 HENMT: COMMON NORMALS: normocephalic HEAD & SCALP: normocephalic Eye: COMMON NORMALS: conjunctivae normal CONJUNCTIVA: Yes conjunctivae normal Neck/C-Spine: COMMON NORMALS: supple Chest: COMMONS NORMALS: normal inspection of the chest Resp: COMMON NORMALS: normal respiratory effort Cardio: COMMON NORMALS: regular rate RATE: regular rate GI: OTHER: distention and tenderness over bladder Extremity: COMMON NORMALS: normal to inspection Neuro: COMMON NORMALS: patient oriented x3 Psych: COMMON NORMALS: mental status grossly normal Skin: COMMON NORMALS: no rashes or lesions noted GENERAL SKIN EXAM: no rashes or lesions noted Course Vital Signs: Vital signs: Vital Signs Temperature 97.7 F 03/13/22 03:31 Pulse Rate 65 03/13/22 03:31 Respiratory Rate 18 03/13/22 03:31 Pulse Oximetry 98 03/13/22 03:31 Oxygen Delivery Me thod 03/13/22 03:31 [facility] - General Adult Medical Decision Making Patient presents with urinary tension has been chronic in nature did place a Mosher he had good output he feels improved he is stable for discharge no signs of infection he is to follow-up with Dr. Arana return if worsening. Lab Data Laboratory Results Urine Color Other (Yellow) 03/13/22 03:57 Urine Appearance Hazy (CLEAR) A 03/13/22 03:57 Urine pH 7 (5-7) 03/13/22 03:57 Ur Specific [place] 1.005 (1.005-1.030) 03/13/22 03:57 Urine Protein 1+ (Negative) H 03/13/22 03:57 Urine Glucose (UA) Norm (Normal) 03/13/22 03:57 Urine Ketones Negative (Negative) 03/13/22 03:57 Urine Blood 3+ (Negative) H 03/13/22 03:57 Urine Nitrate Negative (Negative) 03/13/22 03:57 Urine Bilirubin Neg (Negative) 03/13/22 03:57 Urine Urobilinogen Norm mg/dL (Negative) 03/13/22 03:57 Ur Leukocyte Esterase Trace (Negative) H 03/13/22 03:57 Urine RBC Too numerous to cnt /hpf (0-2) H 03/13/22 03:57 Urine WBC 0-4 /hpf (0-5) H 03/13/22 03:57 Ur Squamous Epith Cells 0-4 /hpf (0-5) H 03/13/22 03:57 Amorphous Sediment Not Reportable 03/13/22 03:57 Urine Bacteria Trace /hpf (NONE) 03/13/22 03:57 Discharge Plan Discharge Patient Disposition: Home Clinical Impression: Acute urinary retention Condition: Stable Prescriptions: No Action magnesium oxide 400 mg magnesium capsule 400 mg PO DAILY vitamin B complex [B Complex-Vitamin B12] Tablet 1 tab PO DAILY fluticasone propionate [Children's Flonase Allergy Rlf] 50 mcg/actuation spray,suspension 1 spray intranasal DAILY PRN Rx Instructions: administer into each nostril sulfamethoxazole-trimethoprim 800-160 mg tablet 1 tab PO BID PRN finasteride 5 mg tablet See Rx Instructions .ROUTE .COMPLEX PRN Dose Instruction: Take 1 tablet by mouth once daily Rx Instructions: Take 1 tablet by mouth once daily PRN; multivitamin Tablet 1 tab PO DAILY levothyroxine 75 mcg capsule 75 mcg PO DAILY sildenafil [Viagra] 25 mg tablet 25 mg PO DAILY PRN Rx Instructions: administer 30 minutes to 4 hours before activity acetaminophen 325 mg capsule 325 mg PO ONCE PRN metoprolol succinate 25 mg tablet extended release 24 hr 25 mg PO DAILY Qty: 90 0RF oxybutynin chloride 5 mg tablet 5 mg PO TID PRN (Reason: bladder spasms) Qty: 30 0RF Discharge Orders: Discharge ED (Routine); Ordered 03/13/22 Ordered By: Ada Schulz Referrals: Thang Arana MD [Physician] - 1-3 days Bradley Marquis DO [Primary Care Provider] - Discharge Diet: Advance as tolerated Discharge Activity: Resume usual activity Patient Instructions: Urinary Retention in Men (ED) Coding Level of Care Code ED Frame Opener for Chg Fwd Exam Comprehensive
[2022-03-13 04:22] LABS: Add Urine Culture? Yes; Add Urine Microscopic? YES; Bacteria Urine TRACE /hpf; Bilirubin Urine Neg (Negative); Blood Urine 3+ (Negative); Glucose Urine UA Norm (Normal); Ketones Urine Negative (Negative); Leukocyte Esterase Urine Trace (Negative); Nitrate Urine Negative (Negative); Protein Urine 1+ (Negative); RBC Urine TOO NUMEROUS TO CNT /hpf (0-2); Specific Gravity, Urine 1.005 (1.005-1.030); Squamous Epithelial Cell Urine 0-4 /hpf (0-5); Urine Appearance Hazy (CLEAR); Urine Color Other (Yellow); Urobilinogen Urine Norm (Negative); WBC Urine 0-4 /hpf (0-5); pH Urine 7 (5-7)
== END 2022-03-13 05:29 | disposition home or self-care (01) ==
PROVIDERS: Emergency Provider Emergency Medicine; PCP Internal Medicine
DX: R33.9 Retention of urine, unspecified (principal); Z86.73 Personal history of transient ischemic attack (TIA), and cerebral infarction without residual deficits
CPT/HCPCS: 51702; 81001; 87086; 99283

== ENCOUNTER 2022-03-16 04:15 | Emergency (ER) | payer MEDICARE, OTHER, SELFPAY ==
[2022-03-16 04:23] VITALS: BP 130/74; PULSE 68; RESP 16; TEMP 36.4; O2SAT 97; BMI 22.7
--- NOTE | 2022-03-16 04:36 | ED_ITS ---
HPI - Male Genitourinary General: Chief complaint: Urogenital-Male Stated complaint: Cathater is leaking Time Seen by Provider: 03/16/22 04:20 Source: patient Mode of arrival: ambulatory Limitations: no limitations History of Present Illness: 77-year-old male's been seen here multiple times for Mosher issues and urinary retention he states that he is scheduled today to see Dr. Arana for Mosher removal he has had leaking around the bag and wants his Mosher removed now he has no other complaints no pain no fevers Associated symptoms: Deny dysuria, nausea or vomiting Review of Systems Const: Denies: fever(s), chills, body aches or change in appetite Eyes: Denies: blurry vision or eye discomfort ENMT: Denies: throat pain or dental pain Card: Denies: chest pain Resp: Denies: dyspnea GI: Denies: abdominal pain, nausea, vomiting or diarrhea : Denies: dysuria Musc: Denies: neck pain or back pain Skin/Breast: Denies: rash Neuro: Denies: headache(s) Psych: Denies: depression Son/Lymph: Denies: easy bruising All/Imm: Denies: urticaria PFSH ED PFSH: Medical History Chronic prostatitis Elevated PSA History of nonmelanoma skin cancer GERARDO (obstructive sleep apnea) SVT (supraventricular tachycardia) Transient ischemic attack Urethral stricture Surgical History H/O hand surgery Left thumb tendon repair S/P cystourethroscopy with dilation of urethral stricture 2013 S/P hernia repair Left inguinal S/P TURP 2012 Family History Father , at age 74 Heart disease Mother , at age 93 Heart disease Dementia Social History Smoking and tobacco status: never smoked Alcohol intake: never Adopted: No Caregiver/support person: No Lives independently: No Household members: spouse Marital status: Current occupational status: retired History of recent travel: No Physical Exam Const: COMMON NORMALS: no acute distress and patient oriented x3 HENMT: COMMON NORMALS: normocephalic HEAD & SCALP: normocephalic Eye: COMMON NORMALS: conjunctivae normal CONJUNCTIVA: Yes conjunctivae normal Neck/C-Spine: COMMON NORMALS: supple Chest: COMMONS NORMALS: normal inspection of the chest Resp: COMMON NORMALS: normal respiratory effort Cardio: COMMON NORMALS: regular rate RATE: regular rate GI: OTHER: Mosher catheter in place with some slight leaking around his leg bag Extremity: COMMON NORMALS: normal to inspection Neuro: COMMON NORMALS: patient oriented x3 Psych: COMMON NORMALS: mental status grossly normal Skin: COMMON NORMALS: no rashes or lesions noted GENERAL SKIN EXAM: no r ashes or lesions noted Course Vital Signs: Vital signs: Vital Signs Temperature 97.6 F 03/16/22 04:23 Pulse Rate 68 03/16/22 04:23 Respiratory Rate 16 03/16/22 04:23 Blood Pressure 130/74 03/16/22 04:23 Pulse Oximetry 97 03/16/22 04:23 Oxygen Delivery Me thod 03/16/22 04:23 MDM - Male Medical Decision Making Patient presents here with leaking around his Mosher bag he is actually scheduled today to have his Mosher removed he requested us to go ahead and remove his Mosher which we did he still has to follow-up with Dr. Arana today as scheduled return if worsening he understands agrees to plan. Discharge Plan Discharge Patient Disposition: Home Clinical Impression: Encounter for Mosher catheter removal Condition: Stable Prescriptions: No Action magnesium oxide 400 mg magnesium capsule 400 mg PO DAILY vitamin B complex [B Complex-Vitamin B12] Tablet 1 tab PO DAILY fluticasone propionate [Children's Flonase Allergy Rlf] 50 mcg/actuation spray,suspension 1 spray intranasal DAILY PRN Rx Instructions: administer into each nostril sulfamethoxazole-trimethoprim 800-160 mg tablet 1 tab PO BID PRN finasteride 5 mg tablet See Rx Instructions .ROUTE .COMPLEX PRN Dose Instruction: Take 1 tablet by mouth once daily Rx Instructions: Take 1 tablet by mouth once daily PRN; multivitamin Tablet 1 tab PO DAILY levothyroxine 75 mcg capsule 75 mcg PO DAILY sildenafil [Viagra] 25 mg tablet 25 mg PO DAILY PRN Rx Instructions: administer 30 minutes to 4 hours before activity acetaminophen 325 mg capsule 325 mg PO ONCE PRN metoprolol succinate 25 mg tablet extended release 24 hr 25 mg PO DAILY Qty: 90 0RF levofloxacin 500 mg tablet 500 mg PO DAILY Qty: 14 2RF oxybutynin chloride 5 mg tablet 5 mg PO TID PRN (Reason: bladder spasms) Qty: 30 0RF Discharge Orders: Discharge ED (Routine); Ordered 03/16/22 Ordered By: Ada Schulz Referrals: Thang Arana MD [Physician] - 1-3 days Bradley Marquis DO [Primary Care Provider] - Discharge Diet: Advance as tolerated Discharge Activity: Resume usual activity Patient Instructions: Mosher Catheter Removal (DC) Coding Level of Care Code ED State'S Attorney for Shruthi Reese
--- NOTE | 2022-03-16 10:45 | ECG_ITS ---
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 Measurements Intervals [place] Rate: 64 P: 75 VT: 155 QRS: 70 QRSD: 90 T: 56 QT: 380 QTc: 393 Interpretive Statements SINUS RHYTHM INTERPRETATION BASED ON A DEFAULT AGE OF 40 YEARS Compared to ECG 12/11/2021 19:18:29 Sinus bradycardia no longer present Electronically Signed On 03-16-2022 20:27:03 DENTAL APPLIANCE REPAIRER by Lesley Fields M.D. [id number]
== END 2022-03-16 05:10 | disposition home or self-care (01) ==
PROVIDERS: Emergency Provider Emergency Medicine; PCP Internal Medicine
DX: Z46.6 Encounter for fitting and adjustment of urinary device (principal); Z86.73 Personal history of transient ischemic attack (TIA), and cerebral infarction without residual deficits
CPT/HCPCS: 93005; 99283

== ENCOUNTER 2022-03-16 10:33 | Emergency (ER) | payer MEDICARE, OTHER, SELFPAY ==
[2022-03-16 10:36] VITALS: BP 152/74; PULSE 69; RESP 20; TEMP 36.2; O2SAT 98; BMI 22.7
--- NOTE | 2022-03-16 11:06 | W.ED.BACK ---
HPI - Back Pain/Injury General: Chief Complaint: Back Pain/Injury Stated Complaint: urinating blood, hurting on back Time Seen by Provider: 03/16/22 11:06 History of Present Illness: Mr. Walden is a 77-year-old gentleman with significant past medical history of enlarged prostate with remote history of TURP presenting to the emergency department due to abdominal pain. He reports increasing urinary symptoms starting approximately 2 weeks ago he began to have blood in urine and urinary retention requiring catheter placement. He is followed with urology and came to the emergency department with urinary symptoms and abdominal discomfort last night and Mosher catheter was removed. He has had initially bloody urine output though now has no longer had tahmina hematuria. Does endorse back pain and generalized malaise as well as shakiness. Endorses generalized malaise though denies fevers or chills. Intensity symptoms is moderate. Course has worsened. No other specific changes in health, exacerbating, or alleviating factors identified. Patient has just started Levaquin. Onset (ago): day(s) Timing: progressively worsening Severity: moderate Similar Symptoms Previously: Yes Radiation: none Exacerbating factors: none Relieving factors: none Review of Systems General: Reports: 10 or more systems reviewed and unremarkable except in HPI and below PFSH ED PFSH: Medical History Chronic prostatitis Elevated PSA History of nonmelanoma skin cancer GERARDO (obstructive sleep apnea) SVT (supraventricular tachycardia) Transient ischemic attack Urethral stricture Surgical History H/O hand surgery Left thumb tendon repair S/P cystourethroscopy with dilation of urethral stricture 2013 S/P hernia repair Left inguinal S/P TURP 2012 Family History Father , at age 74 Heart disease Mother , at age 93 Heart disease Dementia Social History Smoking and tobacco status: never smoked Alcohol intake: never Adopted: No Caregiver/support person: No Lives independently: No Household members: spouse Marital status: Current occupational status: retired History of recent travel: No Physical Exam Const: COMMON NORMALS: alert GENERAL APPEARANCE: cooperative, well developed and ill appearing (Mildly) HENMT: COMMON NORMALS: normocephalic and atraumatic HEAD & SCALP: normocephalic and atraumatic Eye: COMMON NORMALS: conjunctivae normal CONJUNCTIVA: Yes conjunctivae normal SCLERA: sclerae normal Neck/C-Spine: COMMON NORMALS: supple GENERAL: Yes trachea midline Resp: COMMON NORMALS: clear to auscultation bilaterally EFFORT & INSPECTION: Yes able to speak in complete sentences AUSCULTATION: clear to auscultation bilaterally Cardio: COMMON NORMALS: regular rate and regular rhythm RATE: regular rate RHYTHM: regular rhythm GI: COMMON NORMALS: Soft to palpation PALPATION: Yes Soft to palpation and No Tenderness to palpation present (GI) Extremity: GENERAL: Yes normal exam except as noted and No edema Neuro: COMMON NORMALS: moves all extremities SENSORIUM/ORIENTATION: Yes alert and No Orientation impaired Psych: COMMON NORMALS: mental status grossly normal and Normal thought process present THOUGHT PROCESS: Normal thought process present Course Vital Signs: Vital signs: Vital Signs Temperature 97.2 F L 03/16/22 10:36 Pulse Rate 70 03/16/22 15:04 Respiratory Rate 16 03/16/22 15:04 Blood Pressure 142/78 03/16/22 15:04 Pulse Oximetry 98 03/16/22 10:36 MDM - Back Pain/Injury Medical Decision Making 77-year-old gentleman presenting with generalized illness as well as hematuria in the context of recent Moshre catheter placement which she removed. Exam as above, nontoxic in appearance, no evidence of surgical abdomen or acute peritonitis. Labs with no significant hematologic abnormalities. Metabolic panel with mild hyponatremia and mildly decreased bicarb, creatinine near baseline. Urinalysis with hematuria without evidence of urinary tract infection though the patient still is on antibiotics. CT without evidence of chondritis, prostate is enlarged and there is mild circumferential urinary bladder thickening. Negative viral studies. Patient feels improved with IV fluids. Case discussed with urology and we will trial patient without catheter given low postvoid residual and continued ability to urinate with clearing of urine on repeat urine output. Patient will be seen closely for follow-up in clinic. Most likely etiology of patient's symptoms is tract bleeding with occasional clots and hematuria present without evidence of acute urinary retention or significant bladder clot burden. The results of ED evaluation were discussed with the patient including prescriptions and/or symptomatic cares (if applicable) including appropriate and responsible use, followup plan, and return precautions. The patient verbalized understanding and felt safe for discharge. Medical Records I reviewed the patient's medical records. Labs I reviewed the patient's lab results. 03/16/22 11:45 03/16/22 11:45 Radiology Impressions Abdomen/Pelvis CT 03/16/22 11:46 IMPRESSION: 1. No evidence of acute pyelonephritis. 2. Status post TURP. Markedly enlarged, lobular, heterogeneous prostate, projecting into the urinary bladder base. Correlate with clinical exam and PSA levels. 3. Mild circumferential urinary bladder wall thickening, likely secondary to underdistention and/or chronic bladder outlet obstruction. Correlate with urinalysis to exclude cystitis. 4. Additional findings, as above. Laboratory Results WBC 6.8 10^3/uL (4.0-10.0) 03/16/22 11:45 RBC 4.89 10^6/uL (4.1-5.3) 03/16/22 11:45 Hgb 15.2 g/dL (11.7-16.6) 03/16/22 11:45 Hct 44.5 % (42.0-52.0) 03/16/22 11:45 MCV 91.0 fl (80-94) 03/16/22 11:45 MCH 31.1 pg (28.0-34.0) 03/16/22 11:45 MCHC 34.2 g/dL (30.0-36.0) 03/16/22 11:45 RDW 12.3 % (12.1-15.1) 03/16/22 11:45 Plt Count 300 10^3/cmm (130-400) 03/16/22 11:45 MPV 9.3 fL (7.4-10.4) 03/16/22 11:45 Neut % (Auto) 60.9 % 03/16/22 11:45 Lymph % (Auto) 25.2 % 03/16/22 11:45 [place] % (Auto) 11.9 % 03/16/22 11:45 Eos % (Auto) 1.3 % 03/16/22 11:45 Baso % (Auto) 0.4 % 03/16/22 11:45 Neut # (Auto) 4.16 10^3/uL (1.8-7.7) 03/16/22 11:45 Lymph # (Auto) 1.7 10^3/uL (0.8-4.8) 03/16/22 11:45 [place] # (Auto) 0.8 10^3/uL (0.2-0.9) 03/16/22 11:45 Eos # (Auto) 0.1 10^3/uL (0.0-0.8) 03/16/22 11:45 Baso # (Auto) 0.0 10^3/uL (0.0-0.1) 03/16/22 11:45 Nucleated RBC % (auto) 0 % 03/16/22 11:45 Nucleated RBCs # 0.0 /100WBC 03/16/22 11:45 Sodium 133 mmol/L (136-145) L 03/16/22 11:45 Potassium 3.8 mmol/L (3.5-5.1) 03/16/22 11:45 Chloride 101 mmol/L (98-107) 03/16/22 11:45 Carbon Dioxide 19 mmol/L (22-29) L 03/16/22 11:45 Anion Gap 16.8 (5-19) 03/16/22 11:45 BUN 13 mg/dL (8-23) 03/16/22 11:45 Creatinine 1.4 mg/dL (0.7-1.2) H 03/16/22 11:45 GFR Calculation Not Reportable 03/16/22 11:45 Glucose 119 mg/dL (65-115) H 03/16/22 11:45 Calculated Osmolality 277 mOsm/kg (285-295) L 03/16/22 11:45 Calcium 8.7 mg/dL (8.5-10.5) 03/16/22 11:45 Total Bilirubin 0.6 mg/dL (0.15-1.2) 03/16/22 11:45 AST 25 U/L (0-40) 03/16/22 11:45 ALT 15 U/L (0-41) 03/16/22 11:45 Alkaline Phosphatase 50 U/L (40-130) 03/16/22 11:45 Total Protein 7.0 g/dL (6.6-8.7) 03/16/22 11:45 Albumin 4.1 g/dL (3.5-5.2) 03/16/22 11:45 Globulin 2.9 g/dL (1.3-4.6) 03/16/22 11:45 Urine Color Yellow (Yellow) 03/16/22 11:45 Urine Appearance Cloudy (CLEAR) A 03/16/22 11:45 Urine pH 6 (5-7) 03/16/22 11:45 Ur Specific [place] 1.010 (1.005-1.030) 03/16/22 11:45 Urine Protein Neg (Negative) 03/16/22 11:45 Urine Glucose (UA) Norm (Normal) 03/16/22 11:45 Urine Ketones Negative (Negative) 03/16/22 11:45 Urine Blood 3+ (Negative) H 03/16/22 11:45 Urine Nitrate Negative (Negative) 03/16/22 11:45 Urine Bilirubin Neg (Negative) 03/16/22 11:45 Urine Urobilinogen Neg mg/dL (Negative) 03/16/22 11:45 Ur Leukocyte Esterase Negative (Negative) 03/16/22 11:45 Urine RBC Too numerous to cnt /hpf (0-2) H 03/16/22 11:45 Urine WBC 0-4 /hpf (0-5) H 03/16/22 11:45 Ur Squamous Epith Cells 0-4 /hpf (0-5) H 03/16/22 11:45 Amorphous Sediment Not Reportable 03/16/22 11:45 Urine Bacteria Trace /hpf (NONE) 03/16/22 11:45 Influenza Type A Ag negative (Negative) 03/16/22 14:01 Influenza Type B Ag negative (Negative) 03/16/22 14:01 SARS-CoV-2 Ag (Rapid) negative (Negative) 03/16/22 14:01 Discharge Plan Discharge Patient Disposition: Home Clinical Impression: Difficulty in urination, Hematuria, Dehydration, mild Condition: Stable Prescriptions: No Action magnesium oxide 400 mg magnesium capsule 400 mg PO DAILY vitamin B complex [B Complex-Vitamin B12] Tablet 1 tab PO DAILY fluticasone propionate [Children's Flonase Allergy Rlf] 50 mcg/actuation spray,suspension 1 spray intranasal DAILY PRN (Reason: Nasal Congestion) Rx Instructions: administer into each nostril sulfamethoxazole-trimethoprim 800-160 mg tablet 1 tab PO BID PRN (Reason: Catheter Insertion) finasteride 5 mg tablet 5 mg PO DAILY PRN (Reason: prostate) Dose Instruction: Take 1 tablet by mouth once daily multivitamin Tablet 1 tab PO DAILY levothyroxine 75 mcg capsule 75 mcg PO DAILY sildenafil [Viagra] 25 mg tablet 25 mg PO DAILY PRN (Reason: Sexual Activity) Rx Instructions: administer 30 minutes to 4 hours before activity acetaminophen 325 mg capsule 325 mg PO DAILY PRN (Reason: Pain) metoprolol succinate 25 mg tablet extended release 24 hr 25 mg PO DAILY Qty: 90 0RF levofloxacin 500 mg tablet 500 mg PO DAILY Qty: 14 2RF oxybutynin chloride 5 mg tablet 5 mg PO TID PRN (Reason: bladder spasms) Qty: 30 0RF Discharge Orders: Discharge ED (Routine); Ordered 03/16/22 Ordered By: Baldo Muse Referrals: Bradley Marquis DO [Primary Care Provider] - Discharge Diet: Usual diet Discharge Activity: Increase activity as tolerated Patient Instructions: Urinary Retention in Men (ED), Hematuria (ED) Activity Restrictions/Additional Instructions: Thank you for visiting the emergency department. You were seen and evaluated for urinary symptoms. The exact cause of your symptoms is unclear though likely multifactorial and does not appear to need hospitalization at this time. Please continue your previous medication regimen including antibiotics. Please follow-up with urology. Return to the emergency department for worsening symptoms, inability to urinate, uncontrolled pain, or anything else that you are concerned about and feel needs emergency department evaluation. Coding Level of Care Code ED Executive Vice President for Shruthi Fwmalik Exam Comprehensive
[2022-03-16] MEDS: sodium chloride 0.9% 500 ML 999 ML IV (11:43)
--- NOTE | 2022-03-16 11:46 | CTR_ITS ---
PROCEDURE INFORMATION: Exam: CT Abdomen And Pelvis With Contrast Exam date and time: 03/16/2022 12:46 PM Age: 77 years old Clinical indication: Abdominal pain; Prior surgery; Surgery type: Hernia, turp; Additional info: Low back pain, urinary SX, ? pyelonephritis TECHNIQUE: Imaging protocol: Computed tomography of the abdomen and pelvis with contrast. Axial, coronal and sagittal reformatted images were created and reviewed. Radiation optimization: All CT scans at this facility use at least one of these dose optimization techniques: automated exposure control; mA and/or kV adjustment per patient size (includes targeted exams where dose is matched to clinical indication); or iterative reconstruction. Contrast material: OMNI 350; Contrast volume: 100 ml; Contrast route: INTRAVENOUS (IV); COMPARISON: US renal BI* [id number] 03/06/2022 12:47 PM RADIATION DOSE METRICS: Total DLP (mGy-cm): 374.71 FINDINGS: Lungs: Minimal bibasilar atelectatic change. Liver: 1.2 cm simple cyst in the left hepatic lobe. Several scattered subcentimeter low-density hepatic lesions, measuring up to 7 mm in the caudate lobe, too small to characterize. Gallbladder and bile ducts: Cholelithiasis. Pancreas: Unremarkable. Spleen: Unremarkable. Adrenal glands: Normal. No mass. Kidneys and ureters: No mass. No radiodense calculi. No hydronephrosis. Stomach and bowel: Colonic diverticulosis without evidence of diverticulitis. No obstruction. No bowel wall thickening. No pneumatosis. Appendix: Normal. Intraperitoneal space: No free fluid. No organized fluid collection. No free air. Vasculature: Mild atherosclerotic disease. No aneurysm or dissection. Lymph nodes: No pathologically enlarged lymph nodes. Urinary bladder: Mild circumferential urinary bladder wall thickening, likely secondary to underdistention and/or chronic bladder outlet obstruction. Reproductive: Status post TURP. Markedly enlarged, lobular, heterogeneous prostate, projecting into the urinary bladder base. Bones/joints: No acute osseous abnormality. Osteopenia. Degenerative changes. Soft tissues: Small, fat containing right inguinal hernia. CT/CT abdomen pelvis w con* [id number] IMPRESSION: 1. No evidence of acute pyelonephritis. 2. Status post TURP. Markedly enlarged, lobular, heterogeneous prostate, projecting into the urinary bladder base. Correlate with clinical exam and PSA levels. 3. Mild circumferential urinary bladder wall thickening, likely secondary to underdistention and/or chronic bladder outlet obstruction. Correlate with urinalysis to exclude cystitis. 4. Additional findings, as above.
[2022-03-16 11:53] LABS: Basophils % 0.4 %; Eosinophils # 0.1 10^3/uL (0.0-0.8); Eosinophils % 1.3 %; Hematocrit 44.5 % (42.0-52.0); Hemoglobin 15.2 g/dL (11.7-16.6); Lymphocytes # 1.7 10^3/uL (0.8-4.8); Lymphocytes % 25.2 %; Mean Corpuscular HGB Conc 34.2 g/dL (30.0-36.0); Mean Corpuscular Hemoglobin 31.1 pg (28.0-34.0); Mean Platelet Volume 9.3 fL (7.4-10.4); Monocytes # 0.8 10^3/uL (0.2-0.9); Monocytes % 11.9 %; Neutrophils # 4.16 10^3/uL (1.8-7.7); Neutrophils % 60.9 %; Nucleated Red Blood Cells % 0 %; Platelet Count 300 10^3/cmm (130-400); Red Blood Count 4.89 10^6/uL (4.1-5.3); Red Cell Distribution Width 12.3 % (12.1-15.1); White Blood Count 6.8 10^3/uL (4.0-10.0)
[2022-03-16 12:09] LABS: Urine Appearance Cloudy (CLEAR); Urine Color Yellow (Yellow); pH Urine 6 (5-7)
[2022-03-16 12:10] LABS: Add Urine Culture? Yes; Add Urine Microscopic? YES; Bacteria Urine TRACE /hpf; Bilirubin Urine Neg (Negative); Blood Urine 3+ (Negative); Glucose Urine UA Norm (Normal); Ketones Urine Negative (Negative); Leukocyte Esterase Urine Negative (Negative); Nitrate Urine Negative (Negative); Protein Urine Neg (Negative); RBC Urine TOO NUMEROUS TO CNT /hpf (0-2); Squamous Epithelial Cell Urine 0-4 /hpf (0-5); Urobilinogen Urine Neg (Negative); WBC Urine 0-4 /hpf (0-5)
[2022-03-16 12:15] LABS: Alanine Aminotransferase 15 U/L (0-41); Albumin Level 4.1 g/dL (3.5-5.2); Alkaline Phosphatase 50 U/L (40-130); Anion Gap 16.8 (5-19); Aspartate Amino Transferase 25 U/L (0-40); Blood Urea Nitrogen 13 mg/dL (8-23); Calcium 8.7 mg/dL (8.5-10.5); Carbon Dioxide 19 mmol/L (22-29); Chloride 101 mmol/L (98-107); Globulin 2.9 g/dL (1.3-4.6); Glucose 119 mg/dL (65-115); Osmolality Calculated 277 mOsm/kg (285-295); Potassium 3.8 mmol/L (3.5-5.1); Sodium 133 mmol/L (136-145); Total Bilirubin 0.6 mg/dL (0.15-1.2)
[2022-03-16] MEDS: iohexol 350 mg/mL 500 mL Btl (per mL) IV (12:49)
[2022-03-16 14:29] LABS: Influenza A by IFA negative (Negative); Influenza B by IFA negative (Negative)
[2022-03-16 14:46] LABS: SARS Covid-2 Antigen negative (Negative)
[2022-03-16 15:04] VITALS: BP 142/78; PULSE 70; RESP 16
== END 2022-03-16 15:05 | disposition home or self-care (01) ==
PROVIDERS: Emergency Provider Emergency Medicine; PCP Internal Medicine
DX: R31.9 Hematuria, unspecified (principal); R39.198 Other difficulties with micturition; E86.0 Dehydration; Z20.822 Contact with and (suspected) exposure to COVID-19; Z86.73 Personal history of transient ischemic attack (TIA), and cerebral infarction without residual deficits; Z46.6 Encounter for fitting and adjustment of urinary device
CPT/HCPCS: 36415; 74177; 80053; 81001; 85025; 87040; 87086; 87426; 87804; 93005; 99283; 99284; J7040; Q9967

== ENCOUNTER → 2022-03-17 10:48 | Outpatient (BNVA) | payer MEDICARE, OTHER, SELFPAY | PROVIDERS: PCP Internal Medicine; Visit Provider Urology | DX: N12 Tubulo-interstitial nephritis, not specified as acute or chronic (principal); N99.112 Postprocedural membranous urethral stricture, male; R31.0 Gross hematuria; R33.8 Other retention of urine | CPT/HCPCS: 51741; 51798; 81003; 99213 ==

== ENCOUNTER → 2022-05-12 12:31 | Outpatient (BNVA) | payer MEDICARE, OTHER, SELFPAY | PROVIDERS: PCP Internal Medicine; Visit Provider Urology | DX: N99.112 Postprocedural membranous urethral stricture, male (principal); N12 Tubulo-interstitial nephritis, not specified as acute or chronic | CPT/HCPCS: 51798; 81003; 99213 ==

== ENCOUNTER → 2022-08-23 08:34 | Outpatient (BNVA) | payer MEDICARE, OTHER, SELFPAY | PROVIDERS: PCP Internal Medicine; Visit Provider Urology | DX: N99.112 Postprocedural membranous urethral stricture, male (principal); N41.1 Chronic prostatitis | CPT/HCPCS: 81003; 99213 ==

== ENCOUNTER → 2022-09-13 11:25 | Outpatient (BNVA) | payer MEDICARE, OTHER, SELFPAY | PROVIDERS: PCP Internal Medicine; Visit Provider Internal Medicine Cardiovascular Disease | DX: I47.1 Supraventricular tachycardia (principal); R03.0 Elevated blood-pressure reading, without diagnosis of hypertension; H54.62 Unqualified visual loss, left eye, normal vision right eye; Z86.73 Personal history of transient ischemic attack (TIA), and cerebral infarction without residual deficits | CPT/HCPCS: 99214 ==

== ENCOUNTER → 2022-12-09 10:27 | Outpatient (BNVA) | payer MEDICARE, OTHER, SELFPAY | PROVIDERS: PCP Family Medicine; Visit Provider Nurse Practitioner Family | DX: L82.1 Other seborrheic keratosis (principal); L81.4 Other melanin hyperpigmentation; L57.8 Other skin changes due to chronic exposure to nonionizing radiation; Z08 Encounter for follow-up examination after completed treatment for malignant neoplasm; Z85.828 Personal history of other malignant neoplasm of skin; L57.0 Actinic keratosis | CPT/HCPCS: 17004; 99213 ==

== ENCOUNTER → 2023-02-02 09:58 | Outpatient (BNVA) | payer MEDICARE, OTHER, SELFPAY | PROVIDERS: PCP Family Medicine; Visit Provider Nurse Practitioner Family | DX: L57.0 Actinic keratosis (principal); Z08 Encounter for follow-up examination after completed treatment for malignant neoplasm; Z85.828 Personal history of other malignant neoplasm of skin; L82.1 Other seborrheic keratosis; L81.4 Other melanin hyperpigmentation | CPT/HCPCS: 17000; 99214 ==

== ENCOUNTER → 2023-03-24 14:54 | Outpatient (BNVA) | payer MEDICARE, OTHER, SELFPAY | PROVIDERS: PCP Family Medicine; Visit Provider Internal Medicine Cardiovascular Disease | DX: E03.9 Hypothyroidism, unspecified (principal); N18.9 Chronic kidney disease, unspecified | CPT/HCPCS: 36415; 84443; 99214 ==

== ENCOUNTER 2023-04-28 14:11 | Outpatient (CLI) | payer MEDICARE, OTHER, SELFPAY ==
--- NOTE | 2023-04-28 14:16 | CT_ITS ---
WS: [id number] CT ABDOMEN AND PELVIS WITH CONTRAST HISTORY: SIGMOID COLON DIVERTICULITIS TECHNIQUE: Imaging performed of the abdomen and pelvis with IV contrast. Single phase imaging of the abdomen. Coronal and sagittal reformats are submitted. All CT scans at [facility] use at [address] one of these dose optimization techniques: automated exposure control; mA and/or kV adjustment per patient size (includes targeted exams where dose is matched to clinical indication); or iterative re construction. IV CONTRAST: Omnipaque 350; 100 mL IV. Oral contrast: Yes. DLP: 301.56 mGy.cm COMPARISON: 03/16/2022 Lower thorax: Lung bases are clear. Heart is normal size. Small hiatal hernia. Liver/biliary system: Normal size. Stable small cysts in the LEFT lobe of the largest measuring 7 mm. Additional small hypodensity in the caudate lobe. No solid mass. No bile duct dilatation. Normal por osmany vein. Gallbladder: Several stones are present in the gallbladder. No evidence for acute cholecystitis. One of the stones is deep within the gallbladder neck. Pancreas: Normal size pancreas and pancreatic duct. No adjacent inflammation. Spleen: Normal size spleen. No mass or infarct. Adrenal glands: Normal. Right kidney: Normal. Left kidney: Normal. Aorta: Mild atherosclerosis with no aneurysm. Very mild narrowing origin celiac axis. SMA is negative . Lymphadenopathy: None. Free fluid: None. GI tract: Normally distended stomach. No small bowel obstruction. Appendix is negative. Moderate feca l retention in the RIGHT colon. Numerous diverticula throughout the sigmoid colon with tortuosity and chronic wall thickening. No acute diverticulitis is evident. Abdominal wall: Unremarkable abdominal wall. No hernia. Pelvis: No free fluid or adenopathy within the pelvis. Urinary bladder is well distended. Along the s uperior bladder wall is an area of increased attenuation which was also present on the prior study wi th no progression. This may be developing calcification within the wall of the bladder. There is mild diffuse bladder wall thickening. Marked enlargement of the heterogeneous prostate gland encroaching into the base of the urinary bladder. Also similar to the prior study. Inguinal canals are patent julee aterally. Bones: Degenerative disc disease in the lumbar spine. Partial fusion RIGHT SI joint. IMPRESSION: 1. Advanced sigmoid diverticulosis without evidence for acute diverticulitis at this time. 2. Markedly enlarged heterogeneous prostate gland encroaches into the bladder. 3. Cholelithiasis without acute cholecystitis. 4. Hepatic cysts, stable. 5. Normal appendix.
[2023-04-28 15:33] LABS: Blood Urea Nitrogen 20 mg/dL (8-23)
[2023-04-28] MEDS: iohexol 350 mg/mL 500 mL Btl (per mL) PO (15:36)
[2023-04-28] MEDS: iohexol 350 mg/mL 500 mL Btl (per mL) IV (15:37)
== END 2023-04-28 14:12 | disposition home or self-care (01) ==
LOC: RAD 14:12
PROVIDERS: Radiology Neuroradiology; PCP Family Medicine; Visit Provider Family Medicine
DX: K57.32 Diverticulitis of large intestine without perforation or abscess without bleeding (principal); N40.0 Benign prostatic hyperplasia without lower urinary tract symptoms; K80.20 Calculus of gallbladder without cholecystitis without obstruction; K76.89 Other specified diseases of liver
CPT/HCPCS: 74177; 82565; 84520; Q9967

== ENCOUNTER → 2023-05-05 09:51 | Outpatient (BNVA) | payer MEDICARE, OTHER, SELFPAY | PROVIDERS: PCP Family Medicine; Visit Provider Nurse Practitioner Family | DX: L81.4 Other melanin hyperpigmentation (principal); L57.8 Other skin changes due to chronic exposure to nonionizing radiation; L57.0 Actinic keratosis; L82.1 Other seborrheic keratosis; Z85.828 Personal history of other malignant neoplasm of skin | CPT/HCPCS: 17000; 99213 ==

== ENCOUNTER 2023-08-28 17:52 | Emergency (ER) | payer MEDICARE, OTHER, SELFPAY ==
[2023-08-28 17:55] VITALS: BP 139/71; PULSE 59; RESP 17; TEMP 36.8; O2SAT 97; BMI 22.7
--- NOTE | 2023-08-28 18:55 | CTR_ITS ---
PROCEDURE INFORMATION: Exam: CT Abdomen And Pelvis With Contrast Exam date and time: 08/28/2023 7:23 PM Age: 78 years old Clinical indication: Other: Weakness. Loss of appetite; Prior surgery; Surgery date: 6+ months; Surgery type: Inguinal hernia repair. Turp; Patient HX: Increasing general weakness with loss of appetite. Patient finished antibiotics this week for sigmoid diverticulitis. ; Additional info: Abd pain weakness HX diverticulitis TECHNIQUE: Imaging protocol: Computed tomography of the abdomen and pelvis with contrast. Radiation optimization: All CT scans at this facility use at least one of these dose optimization techniques: automated exposure control; mA and/or kV adjustment per patient size (includes targeted exams where dose is matched to clinical indication); or iterative reconstruction. Contrast material: OMNI 350; Contrast volume: 80 ml; Contrast route: INTRAVENOUS (IV); COMPARISON: CT abdomen pelvis w con* [id number] 04/28/2023 3:34 PM RADIATION DOSE METRICS: Total DLP (mGy-cm): 423.45 FINDINGS: Liver: Normal. No mass. Gallbladder and bile ducts: Cholelithiasis. Pancreas: Normal. No ductal dilation. Spleen: Normal. No splenomegaly. Adrenal glands: Normal. No mass. Kidneys and ureters: Normal. No hydronephrosis. Stomach and bowel: There are air-fluid levels in the distal colon suggesting mild nonspecific colitis versus other diarrheal illness. There is diverticulosis of the colon without evidence of diverticulitis. Appendix: No evidence of appendicitis. Intraperitoneal space: Unremarkable. No free air. No significant fluid collection. Vasculature: Unremarkable. No abdominal aortic aneurysm. Lymph nodes: Unremarkable. No enlarged lymph nodes. Urinary bladder: Anterior bladder wall is thickened and irregular in contour. Reproductive: Prostate gland is heterogeneous, enlarged, and indents the base of the bladder. Bones/joints: There are degenerative changes in the visualized spine. Soft tissues: Small fat containing right inguinal hernia. CT/CT abdomen pelvis w con* [id number] IMPRESSION: 1. There are air-fluid levels in the distal colon suggesting mild nonspecific colitis versus other diarrheal illness. 2. Prostate gland is heterogeneous, enlarged, and indents the base of the bladder. 3. Anterior bladder wall is thickened and irregular in contour. This is nonspecific and may represent bladder outlet obstruction, inflammation or infection. Neoplastic process is included in the differential. 4. Cholelithiasis.
[2023-08-28 19:13] LABS: Basophils % 0.6 %; Eosinophils # 0.5 10^3/uL (0.0-0.8); Eosinophils % 7.1 %; Hematocrit 43.7 % (37-53); Lymphocytes % 30.2 %; Mean Corpuscular HGB Conc 33.9 g/dL (30-55); Mean Corpuscular Hemoglobin 31.5 pg (27-33); Mean Platelet Volume 9.4 fL (7.4-10.4); Monocytes # 0.8 10^3/uL (0.2-0.9); Monocytes % 11.9 %; Neutrophils # 3.37 10^3/uL (1.8-7.7); Neutrophils % 49.9 %; Nucleated Red Blood Cells % 0 %; Platelet Count 284 10^3/cmm (157-399); Red Cell Distribution Width 13.2 % (12.1-15.1); White Blood Count 6.75 10^3/uL (3.29-11.43)
[2023-08-28] MEDS: sodium chloride 0.9% 1,000 ML 999 ML IV ×2 (19:20→19:21)
[2023-08-28 19:24] LABS: Add Urine Microscopic? NO; Charge for UA Resulting for Rev
[2023-08-28] MEDS: iohexol 350 mg/mL 500 mL Btl (per mL) IV (19:24)
[2023-08-28 19:25] VITALS: BP 137/76; PULSE 58; RESP 16; O2SAT 98
[2023-08-28 19:27] LABS: Bilirubin Urine Neg (Negative); Blood Urine Neg (Negative); Glucose Urine UA Norm (Normal); Ketones Urine Negative (Negative); Leukocyte Esterase Urine Negative (Negative); Nitrate Urine Negative (Negative); Protein Urine Neg (Negative); Specific Gravity, Urine 1.005 (1.005-1.030); Urine Appearance Clear (CLEAR); Urine Color Yellow (Yellow); Urobilinogen Urine Neg (Negative); pH Urine 6.5 (5-7)
[2023-08-28 19:36] LABS: Alanine Aminotransferase 22 U/L (0-41); Albumin Level 3.8 g/dL (3.5-5.2); Alkaline Phosphatase 54 U/L (40-130); Anion Gap 13.2 (5-19); Aspartate Amino Transferase 38 U/L (0-40); Blood Urea Nitrogen 16 mg/dL (8-23); C Reactive Protein 9.6 mg/L (0.0-4.9); Carbon Dioxide 23 mmol/L (22-29); Chloride 102 mmol/L (98-107); Creatinine Clr Calc Pharmacy 42.9922; Globulin 3.1 g/dL (1.3-4.6); Glucose 127 mg/dL (65-115); Lipase 35 U/L (13-60); Osmolality Calculated 281 mOsm/kg (285-295); Potassium 4.2 mmol/L (3.5-5.1); Sodium 134 mmol/L (136-145); Total Bilirubin 0.2 mg/dL (0.15-1.2); Total Protein 6.9 g/dL (6.6-8.7)
[2023-08-28 19:37] VITALS: BP 124/97; PULSE 64; RESP 16; O2SAT 99
--- NOTE | 2023-08-28 19:40 | W.ED.WEAKNES ---
HPI - Weakness General: Chief complaint: Weakness Stated complaint: weakness Time Seen by Provider: 08/28/23 18:42 History of Present Illness: 78-year-old male who was diagnosed on Tuesday with diverticulitis clinically. At that point, he was feeling ill and had left lower quadrant pain with a low-grade temperature. He has been on antibiotics, metronidazole and ciprofloxacin for the last 4 days. This is day #5 of 10 of his antibiotics. He has been on a liquid diet. Today, he was feeling weaker than he had been. His weakness has progressed today, despite trying to hydrate. He believes he is dehydrated. No further fever. No diarrhea. No blood in the stool. No vomiting. His pain is essentially resolved. Associated symptoms: Denies chest pain, chills, confusion, fever(s), headache(s), nausea or vomiting Review of Systems Const: Denies: fever(s), chills or body aches Eyes: Denies: change in vision Card: Denies: chest pain or palpitations Resp: Denies: dyspnea, productive cough, non-productive cough or wheezing GI: Denies: abdominal pain, nausea, vomiting, diarrhea or hematochezia Skin/Breast: Denies: rash Neuro: Reports: weakness in extremities (Generalized); Denies: headache(s), dizziness or confusion PFSH ED PFSH: Medical History Transient ischemic attack History of nonmelanoma skin cancer Chronic prostatitis GERARDO (obstructive sleep apnea) Elevated PSA Urethral stricture SVT (supraventricular tachycardia) Surgical History S/P cystourethroscopy with dilation of urethral stricture 2013 S/P hernia repair Left inguinal H/O hand surgery Left thumb tendon repair S/P TURP 2012 Family History Father , at age 74 Heart disease Mother , at age 93 Heart disease Dementia Social History Smoking and tobacco/nicotine status: never used tobacco/nicotine Alcohol intake: never Adopted: No Caregiver/support person: No Lives independently: No Household members: spouse Marital status: Current occupational status: retired Physical Exam Const: COMMON NORMALS: no acute distress GENERAL APPEARANCE: cooperative; not ill appearing and not frail appearing HENMT: COMMON NORMALS: normocephalic, atraumatic and Normal external nose present HEAD & SCALP: normocephalic and atraumatic FACE & SINUS: normal facial exam and face symmetric NOSE: Normal external nose present Eye: COMMON NORMALS: Equal, round and reactive pupils present and EOMs intact bilaterally PUPIL: Yes Equal, round and reactive pupils present Neck/C-Spine: GENERAL: Yes trachea midline Chest: CHEST: Yes Symmetrical chest wall rise Resp: COMMON NORMALS: normal respiratory effort, No retractions, No use of accessory muscles and clear to auscultation bilaterally AUSCULTATION: clear to auscultation bilaterally Cardio: COMMON NORMALS: regular rate and regular rhythm RATE: regular rate RHYTHM: regular rhythm GI: COMMON NORMALS: Normal to inspection, nondistended, normoactive bowel sounds present Extremity: COMMON NORMALS: no pedal edema Neuro: MAL COMA SCALE: document GCS findings Mal coma scale eye opening: Spontaneous [place] coma scale verbal response: Orientated [place] coma scale motor response: Obey commands [place] coma scale total score: 15 SENSORY EXAM: Yes extremities (intact) Psych: COMMON NORMALS: speech normal SPEECH: Yes normal speech Skin: COMMON NORMALS: no rashes or lesions noted GENERAL SKIN EXAM: no rashes or lesions noted Course Vital Signs: Vital signs: Vital Signs Temperature 98.2 F 08/28/23 17:55 Pulse Rate 59 L 08/28/23 21:27 Respiratory Rate 16 08/28/23 21:27 Blood Pressure 137/74 08/28/23 21:27 Pulse Oximetry 96 08/28/23 21:27 Oxygen Delivery Me thod Room Air 08/28/23 17:55 MDM - Weakness Medical Decision Making Patient is improved after fluid bolus. He is feeling much better. His creatinine is 1.3 which is essentially his baseline. His other laboratory is not remarkable. His CRP is not significantly elevated at 9. His urinalysis is negative. His CT shows air-fluid levels in the distal colon suggesting mild nonspecific colitis. No distinct diverticulitis. His bladder wall is thickened, likely from chronic obstruction. The patient caths at times daily. With improvement in his symptoms, he will be allowed discharge. Given his CT findings, should continue antibiotics. He will attempt to advance his diet for more protein calorie nutrition. He will return for worsening symptoms. Close outpatient follow-up. Lab Data 08/28/23 19:06 08/28/23 19:06 Radiology Impressions Abdomen/Pelvis CT 08/28/23 18:55 IMPRESSION: 1. There are air-fluid levels in the distal colon suggesting mild nonspecific colitis versus other diarrheal illness. 2. Prostate gland is heterogeneous, enlarged, and indents the base of the bladder. 3. Anterior bladder wall is thickened and irregular in contour. This is nonspecific and may represent bladder outlet obstruction, inflammation or infection. Neoplastic process is included in the differential. 4. Cholelithiasis. Laboratory Results WBC 6.75 10^3/uL (3.29-11.43) 08/28/23 19:06 RBC 4.70 10^6/uL (3.85-5.65) 08/28/23 19:06 Hgb 14.80 g/dL (11.27-16.99) 08/28/23 19:06 Hct 43.7 % (37-53) 08/28/23 19:06 MCV 93.0 fl (82-101) 08/28/23 19:06 MCH 31.5 pg (27-33) 08/28/23 19:06 MCHC 33.9 g/dL (30-55) 08/28/23 19:06 RDW 13.2 % (12.1-15.1) 08/28/23 19:06 Plt Count 284 10^3/cmm (157-399) 08/28/23 19:06 MPV 9.4 fL (7.4-10.4) 08/28/23 19:06 Neut % (Auto) 49.9 % 08/28/23 19:06 Lymph % (Auto) 30.2 % 08/28/23 19:06 [place] % (Auto) 11.9 % 08/28/23 19:06 Eos % (Auto) 7.1 % 08/28/23 19:06 Baso % (Auto) 0.6 % 08/28/23 19:06 Neut # (Auto) 3.37 10^3/uL (1.8-7.7) 08/28/23 19:06 Lymph # (Auto) 2.0 10^3/uL (0.8-4.8) 08/28/23 19:06 [place] # (Auto) 0.8 10^3/uL (0.2-0.9) 08/28/23 19:06 Eos # (Auto) 0.5 10^3/uL (0.0-0.8) 08/28/23 19:06 Baso # (Auto) 0.0 10^3/uL (0.0-0.1) 08/28/23 19:06 Nucleated RBC % (auto) 0 % 08/28/23 19:06 Nucleated RBCs # 0.0 /100WBC 08/28/23 19:06 Sodium 134 mmol/L (136-145) L 08/28/23 19:06 Potassium 4.2 mmol/L (3.5-5.1) 08/28/23 19:06 Chloride 102 mmol/L (98-107) 08/28/23 19:06 Carbon Dioxide 23 mmol/L (22-29) 08/28/23 19:06 Anion Gap 13.2 (5-19) 08/28/23 19:06 BUN 16 mg/dL (8-23) 08/28/23 19:06 Creatinine 1.3 mg/dL (0.7-1.2) H 08/28/23 19:06 GFR Calculation Not Reportable 08/28/23 19:06 Glucose 127 mg/dL (65-115) H 08/28/23 19:06 Calculated Osmolality 281 mOsm/kg (285-295) L 08/28/23 19:06 Calcium 9.0 mg/dL (8.5-10.5) 08/28/23 19:06 Total Bilirubin 0.2 mg/dL (0.15-1.2) 08/28/23 19:06 AST 38 U/L (0-40) 08/28/23 19:06 ALT 22 U/L (0-41) 08/28/23 19:06 Alkaline Phosphatase 54 U/L (40-130) 08/28/23 19:06 C-Reactive Protein 9.6 mg/L (0.0-4.9) H 08/28/23 19:06 Total Protein 6.9 g/dL (6.6-8.7) 08/28/23 19:06 Albumin 3.8 g/dL (3.5-5.2) 08/28/23 19:06 Globulin 3.1 g/dL (1.3-4.6) 08/28/23 19:06 Lipase 35 U/L (13-60) 08/28/23 19:06 Urine Color Yellow (Yellow) 08/28/23 19:20 Urine Appearance Clear (CLEAR) 08/28/23 19:20 Urine pH 6.5 (5-7) 08/28/23 19:20 Ur Specific [place] 1.005 (1.005-1.030) 08/28/23 19:20 Urine Protein Neg (Negative) 08/28/23 19:20 Urine Glucose (UA) Norm (Normal) 08/28/23 19:20 Urine Ketones Negative (Negative) 08/28/23 19:20 Urine Blood Neg (Negative) 08/28/23 19:20 Urine Nitrate Negative (Negative) 08/28/23 19:20 Urine Bilirubin Neg (Negative) 08/28/23 19:20 Urine Urobilinogen Neg mg/dL (Negative) 08/28/23 19:20 Ur Leukocyte Esterase Negative (Negative) 08/28/23 19:20 All radiology interpretation(s) finalized by discharge Discharge Plan Discharge Patient Disposition: Home Clinical Impression: Colitis Condition: Stable Prescriptions: No Action magnesium oxide 400 mg magnesium capsule 400 mg PO DAILY vitamin B complex [B Complex-Vitamin B12] Tablet 1 tab PO DAILY multivitamin Tablet 1 tab PO DAILY levothyroxine 75 mcg capsule 75 mcg PO DAILY acetaminophen 325 mg capsule 325 mg PO DAILY PRN (Reason: Pain) doxycycline hyclate 100 mg tablet 100 mg PO BID 7 Days Qty: 14 0RF finasteride 5 mg tablet See Rx Instructions .ROUTE .COMPLEX Qty: 90 3RF Dose Instruction: Take 1 tablet by mouth once daily Rx Instructions: Take 1 tablet by mouth once daily metoprolol succinate 25 mg tablet extended release 24 hr See Rx Instructions .ROUTE .COMPLEX Qty: 90 3RF Dose Instruction: Take 1 tablet by mouth once daily Rx Instructions: Take 1 tablet by mouth once daily Discharge Orders: Discharge ED (Routine); Ordered 08/28/23 Ordered By: Shawn Cantor Referrals: Elías Cid MD [Primary Care Provider] - 4-7 days Discharge Diet: Advance as tolerated Patient Instructions: Colitis (ED), Opioid Safety, Pain Management Activity Restrictions/Additional Instructions: Advance your diet as we discussed. Stay hydrated as we discussed. Continue your antibiotics, and follow-up with your doctor. Return for worsening symptoms despite treatment, such as fever greater than 100, vomiting liquids or medications, worsening pain, weakness, other concerns. Coding Level of Care Code ED Instructional Services Specialist for Shruthi Reese
[2023-08-28 20:02] VITALS: BP 132/72; PULSE 64; RESP 16; O2SAT 99
[2023-08-28 20:34] VITALS: BP 136/76; PULSE 65; RESP 16; O2SAT 99
[2023-08-28] MEDS: oxymetazoline 0.05% Nasal Spray 15 mL 2 SPRAY NOSTRIL-B (20:49)
[2023-08-28 21:27] VITALS: BP 137/74; PULSE 59; RESP 16; O2SAT 96
== END 2023-08-28 21:44 | disposition home or self-care (01) ==
PROVIDERS: Emergency Provider Emergency Medicine; PCP Family Medicine
DX: K52.9 Noninfective gastroenteritis and colitis, unspecified (principal); Z86.73 Personal history of transient ischemic attack (TIA), and cerebral infarction without residual deficits
CPT/HCPCS: 74177; 80053; 81003; 83690; 85025; 86140; 96360; 99285; J7030; Q9967

== ENCOUNTER → 2023-09-05 10:05 | Outpatient (BNVA) | payer MEDICARE, OTHER, SELFPAY | PROVIDERS: PCP Family Medicine; Visit Provider Nurse Practitioner Family | DX: L57.0 Actinic keratosis (principal); D48.5 Neoplasm of uncertain behavior of skin; L81.4 Other melanin hyperpigmentation; D18.01 Hemangioma of skin and subcutaneous tissue; Z85.828 Personal history of other malignant neoplasm of skin | CPT/HCPCS: 11102; 17000; 99213 ==

== ENCOUNTER → 2023-09-20 09:15 | Outpatient (BNVA) | payer MEDICARE, OTHER, SELFPAY | PROVIDERS: PCP Family Medicine; Visit Provider Dermatology | DX: C44.319 Basal cell carcinoma of skin of other parts of face (principal) | CPT/HCPCS: 13132; 17311 ==

== ENCOUNTER → 2024-01-05 10:20 | Outpatient (BNVA) | payer MEDICARE, OTHER, SELFPAY | PROVIDERS: PCP Family Medicine; Visit Provider Nurse Practitioner Family | DX: L81.4 Other melanin hyperpigmentation (principal); D18.01 Hemangioma of skin and subcutaneous tissue; L57.8 Other skin changes due to chronic exposure to nonionizing radiation; Z85.828 Personal history of other malignant neoplasm of skin; D48.5 Neoplasm of uncertain behavior of skin; L57.0 Actinic keratosis | CPT/HCPCS: 11104; 17000; 99213 ==

== ENCOUNTER → 2024-01-17 12:33 | Outpatient (BNVA) | payer MEDICARE, OTHER, SELFPAY | PROVIDERS: PCP Family Medicine; Visit Provider Dermatology | DX: D23.5 Other benign neoplasm of skin of trunk (principal); L57.8 Other skin changes due to chronic exposure to nonionizing radiation | CPT/HCPCS: 99213 ==

== ENCOUNTER → 2024-03-26 13:37 | Outpatient (BNVA) | payer MEDICARE, OTHER, SELFPAY | PROVIDERS: PCP Family Medicine; Visit Provider Internal Medicine Cardiovascular Disease | DX: I47.10 Supraventricular tachycardia, unspecified (principal); R03.0 Elevated blood-pressure reading, without diagnosis of hypertension; E03.9 Hypothyroidism, unspecified | CPT/HCPCS: 99213 ==

== ENCOUNTER → 2024-07-06 11:06 | Outpatient (BNVA) | payer MEDICARE, OTHER, SELFPAY | PROVIDERS: PCP Family Medicine; Visit Provider Nurse Practitioner Family | DX: D23.5 Other benign neoplasm of skin of trunk (principal); L57.8 Other skin changes due to chronic exposure to nonionizing radiation; L81.4 Other melanin hyperpigmentation; D18.01 Hemangioma of skin and subcutaneous tissue; Z08 Encounter for follow-up examination after completed treatment for malignant neoplasm; Z85.828 Personal history of other malignant neoplasm of skin; B07.8 Other viral warts; L29.89 Other pruritus; Z78.9 Other specified health status; L53.8 Other specified erythematous conditions; L57.0 Actinic keratosis | CPT/HCPCS: 17000; 17110; 99213 ==

== ENCOUNTER → 2024-10-04 11:10 | Outpatient (BNVA) | payer MEDICARE, OTHER, SELFPAY | PROVIDERS: PCP Family Medicine; Visit Provider Nurse Practitioner Family | DX: B00.1 Herpesviral vesicular dermatitis (principal); L57.8 Other skin changes due to chronic exposure to nonionizing radiation; Z08 Encounter for follow-up examination after completed treatment for malignant neoplasm; Z85.828 Personal history of other malignant neoplasm of skin; L57.0 Actinic keratosis | CPT/HCPCS: 17000; 99214 ==

== ENCOUNTER → 2025-03-04 12:47 | Outpatient (BNVA) | payer MEDICARE, OTHER, SELFPAY | PROVIDERS: PCP Family Medicine; Visit Provider Nurse Practitioner Family | DX: L57.0 Actinic keratosis (principal); D48.5 Neoplasm of uncertain behavior of skin; L81.4 Other melanin hyperpigmentation; Z85.828 Personal history of other malignant neoplasm of skin; D18.01 Hemangioma of skin and subcutaneous tissue; L57.8 Other skin changes due to chronic exposure to nonionizing radiation | CPT/HCPCS: 11102; 17004; 99213 ==